=== PATIENT | female | born 1950 | race Caucasian/White ===

== ENCOUNTER 2023-12-07 13:41 | Outpatient (AMB) | payer MEDICARE, SELFPAY ==
[2023-12-07 14:05] VITALS: BP 138/52; PULSE 73; O2SAT 95; BMI 31.6
--- NOTE | 2023-12-07 14:05 | HO.NEPHOV ---
HPI HPI Comments History of Present Illness Details Margi is a 73-year-old woman with a history of resistant hypertension setting obesity and diabetes mellitus. She has a history of coronary disease and atrial fibrillation. She has been on spironolactone hydralazine and amlodipine. About a week ago she had lightheadedness with low blood pressure all the medication were discontinued and she has started back slowly 1 at a time. And she is able to tolerated now without any issues Baseline creatinine is around 1.4 mg/dL.. [facility] Medical History (Updated 12/07/23 @ 15:20 by Dave Angulo MD) Venous insufficiency (chronic) (peripheral) Unsteadiness on feet Type 2 diabetes mellitus Stage 3 chronic kidney disease Spondylolisthesis of lumbar region Spinal stenosis Solitary pulmonary nodule Obstructive sleep apnea on CPAP Seizure Restlessness Restless leg syndrome Primary osteoarthritis Pneumonia Personal history of other diseases of digestive system Paroxysmal atrial fibrillation Pancreatitis Pain in both feet Overactive bladder Other rheumatic aortic valve diseases Other lack of coordination Other hyperlipidemia Other emphysema Onychomycosis Occlusion and stenosis of unspecified carotid artery Obstructive sleep apnea syndrome Malignant essential hypertension Low back pain Localized osteoporosis [Lequesne] Localization-related (focal) (partial) symptomatic epilepsy and epileptic syndromes with simple partial seizures, intractable, with status epilepticus Irritable bowel syndrome Insomnia Inflammatory spondylopathy of lumbar region Hypertensive retinopathy Hypersomnia with sleep apnea Guttate psoriasis Generalized muscle weakness Essential hypertension Esophageal reflux Encounter for other specified surgical aftercare Diverticulitis of colon Disorder of eye Difficulty walking Depressive disorder Functional constipation Congestive heart failure Carpal tunnel syndrome of left wrist Atrial fibrillation Atherosclerotic heart disease of [place] coronary artery without angina pectoris Asthma Anxiety Adjustment disorder with mixed anxiety and depressed mood Anemia Surgical History (Updated 11/29/23 @ 10:48 by Fabi Cui) History of cholecystectomy Hx of cataract surgery Family History Family/Other Diabetes Social History Alcohol intake: never Patient Tobacco Use Status: Never used Tobacco Vital Signs 12/07/23 14:05 Height 5 ft Weight 162 lb BMI 31.6 BP 138/52 L Blood Pressure Location Lt brachial Position Sitting Pulse 73 Pulse Source Pulse Oximeter Pulse Oximetry (%) 95 Oxygen Delivery Method Room Air Physical Exam Vital Signs: Last Vital Signs Pulse 73 12/07/23 14:05 BP 138/52 L 12/07/23 14:05 Pulse Ox 95 12/07/23 14:05 Oxygen Delivery Method Room Air 12/07/23 14:05 BMI result Body Mass Index 31.6 Const General: comfortable Nutritional Appearance: well nourished Orientation/consciousness: patient oriented x3 HEENT Head: No normal to inspection Mouth: moist mucous membranes Neck Neck: Yes supple and Yes no JVD Resp Auscultation: clear to auscultation bilaterally, no rales and rub present Cardio Jugular venous distension: no JVD Palpation: no palpable S3 and no palpable S4 Heart sounds: no rubs GI Palpation (GI): Soft to palpation and nontender Percussion: No Fluid wave present General: Yes no CVA tenderness Back/Spine/Pelvis Back: no CVA tenderness Skin General skin exam: no rashes or lesions noted Neuro General: patient oriented x3 Extrem General: Yes no pedal edema and No clubbing Assessment & Plan Assessment & Plan (1) CKD (chronic kidney disease): Code(s): N18.9 - Chronic kidney disease, unspecified (2) Malignant essential hypertension: Code(s): I10 - Essential (primary) hypertension Plan Elderly woman with llhvrtcjr-ru-apsrmqv hypertension in the setting of coronary disease and CKD. In the past she has been tried on various medications and blood pressure been difficult to control. She has had few admissions with severe hypertension as well as hypotension. Present blood pressure seems to be acceptable. Encouraged her to stay on low-sodium diet. I will keep her on the current regimen. While on spironolactone we will continue to monitor serum potassium periodically. Encouraged her to stay on a low potassium diet as well. She will benefit from weight loss. I have not made any changes to her medications today. Orders: Orders Complete Blood Count Auto Diff 3 Months N18.9 - Chronic kidney disease, unspecified Electrolytes 3 Months N18.9 - Chronic kidney disease, unspecified Blood Urea Nitrogen 3 Months N18.9 - Chronic kidney disease, unspecified Creatinine 3 Months N18.9 - Chronic kidney disease, unspecified Calcium 3 Months N18.9 - Chronic kidney disease, unspecified Medications: New amlodipine 5 mg PO BID 60 tabs 3RF hydralazine 50 mg (2 x 25 mg) PO TID 180 tabs 3RF Coding Level of Care Code Est Pt Level 4 (00594) Diagnoses CKD (chronic kidney disease) N18.9 Malignant essential hypertension I10 Results Reviewed Results Reviewed: 12/05/2023. Hemoglobin 12.4 platelets 2 1 0 K. Sodium 140 potassium 4.5 BUN 27 creatinine 1.4 Nephrology Results: No Data to Display
== END 2023-12-07 14:30 | disposition home or self-care (01) ==
PROVIDERS: PCP Pediatrics; Visit Provider Internal Medicine Hypertension Specialist
DX: I12.9 Hypertensive chronic kidney disease with stage 1 through stage 4 chronic kidney disease, or unspecified chronic kidney disease (principal); N18.9 Chronic kidney disease, unspecified
CPT/HCPCS: 99214

== ENCOUNTER → 2023-12-07 13:41 | Outpatient (BNVA) | payer MEDICARE, SELFPAY | PROVIDERS: PCP Pediatrics; Visit Provider Internal Medicine Hypertension Specialist | DX: I12.9 Hypertensive chronic kidney disease with stage 1 through stage 4 chronic kidney disease, or unspecified chronic kidney disease (principal); N18.9 Chronic kidney disease, unspecified | CPT/HCPCS: 99212 ==

== ENCOUNTER 2024-04-11 13:10 | Outpatient (AMB) | payer MEDICARE, SELFPAY ==
[2024-04-11 13:17] VITALS: BP 138/52; PULSE 51; O2SAT 96; BMI 31.8
--- NOTE | 2024-04-11 13:17 | HO.NEPHOV_ITS ---
Vital Signs 04/11/24 13:17 Height 5 ft Weight 163 lb BMI 31.8 BP 138/52 L Blood Pressure Location Lt brachial Position Sitting Pulse 51 Pulse Source Pulse Oximeter Pulse Oximetry (%) 96 Oxygen Delivery Method Room Air Intake Visit Reasons: May follow up/ Confirmed Communications Administrator Required: No Accompanied by: Self / Same As Patient Allergies codeine Allergy (Verified 04/11/24 13:19) Unknown furosemide Allergy (Verified 04/11/24 13:19) Unknown lisinopril Allergy (Verified 04/11/24 13:19) Cough oxycodone Allergy (Verified 04/11/24 13:19) Itching tetracycline Allergy (Verified 04/11/24 13:19) Nausea and Vomiting Erythromycin Allergy (Uncoded 11/29/23 11:02) Vomiting Hydrocodone-Acetaminophen Allergy (Uncoded 11/29/23 11:02) Itching Talwin Pentazocine Allergy (Uncoded 11/29/23 11:02) Itching HPI Comments Details: Margi is a 74-year-old woman with a history of resistant hypertension setting obesity and diabetes mellitus. She has a history of coronary disease and atrial fibrillation. She has been on spironolactone hydralazine and amlodipine. No new issues today Baseline creatinine is around 1.4 mg/dL.. [facility] Medical History (Updated 12/07/23 @ 15:20 by Dave Angulo MD) Venous insufficiency (chronic) (peripheral) Unsteadiness on feet Type 2 diabetes mellitus Stage 3 chronic kidney disease Spondylolisthesis of lumbar region Spinal stenosis Solitary pulmonary nodule Obstructive sleep apnea on CPAP Seizure Restlessness Restless leg syndrome Primary osteoarthritis Pneumonia Personal history of other diseases of digestive system Paroxysmal atrial fibrillation Pancreatitis Pain in both feet Overactive bladder Other rheumatic aortic valve diseases Other lack of coordination Other hyperlipidemia Other emphysema Onychomycosis Occlusion and stenosis of unspecified carotid artery Obstructive sleep apnea syndrome Malignant essential hypertension Low back pain Localized osteoporosis [Lequesne] Localization-related (focal) (partial) symptomatic epilepsy and epileptic syndromes with simple partial seizures, intractable, with status epilepticus Irritable bowel syndrome Insomnia Inflammatory spondylopathy of lumbar region Hypertensive retinopathy Hypersomnia with sleep apnea Guttate psoriasis Generalized muscle weakness Essential hypertension Esophageal reflux Encounter for other specified surgical aftercare Diverticulitis of colon Disorder of eye Difficulty walking Depressive disorder Functional constipation Congestive heart failure Carpal tunnel syndrome of left wrist Atrial fibrillation Atherosclerotic heart disease of [place] coronary artery without angina pectoris Asthma Anxiety Adjustment disorder with mixed anxiety and depressed mood Anemia Surgical History History of cholecystectomy Hx of cataract surgery Family History Family/Other Diabetes Social History Alcohol intake: never Patient Tobacco Use Status: Never used Tobacco Physical Exam Vital Signs: Last Vital Signs Pulse 51 04/11/24 13:17 BP 138/52 L 04/11/24 13:17 Pulse Ox 96 04/11/24 13:17 Oxygen Delivery Method Room Air 04/11/24 13:17 BMI result Body Mass Index 31.8 Const General: comfortable Nutritional Appearance: well nourished Orientation/consciousness: patient oriented x3 HEENT Head: No normal to inspection Mouth: moist mucous membranes Neck Neck: Yes supple and Yes no JVD Resp Auscultation: clear to auscultation bilaterally, no rales and rub present Cardio Jugular venous distension: no JVD Palpation: no palpable S3 and no palpable S4 Heart sounds: no rubs GI Palpation (GI): Soft to palpation and nontender Percussion: No Fluid wave present General: Yes no CVA tenderness Back/Spine/Pelvis Back: no CVA tenderness Skin General skin exam: no rashes or lesions noted Neuro General: patient oriented x3 Extrem General: Yes no pedal edema and No clubbing Results Reviewed Nephrology Results: No Data to Display Assessment & Plan Assessment & Plan (1) CKD (chronic kidney disease): Code(s): N18.9 - Chronic kidney disease, unspecified Category: Medical (2) Malignant essential hypertension: Code(s): I10 - Essential (primary) hypertension Category: Medical Plan Elderly woman with ipbkamldy-th-hawqpsc hypertension in the setting of coronary disease and CKD. In the past she has been tried on various medications and blood pressure been difficult to control. She has had few admissions with severe hypertension as well as hypotension. Present blood pressure seems to be acceptable. Encouraged her to stay on low-sodium diet. I will keep her on the current regimen. While on spironolactone we will continue to monitor serum potassium periodicall y. Encouraged her to stay on a low potassium diet as well. She will benefit from weight loss. I have not made any changes to her medications today. Orders: Orders Basic Metabolic Panel 4 Months N18.9 - Chronic kidney disease, unspecified Coding Level of Care Code Est Pt Level 4 (31196) Diagnoses CKD (chronic kidney disease) N18.9 Malignant essential hypertension I10
== END 2024-04-11 13:33 | disposition home or self-care (01) ==
PROVIDERS: PCP Pediatrics; Visit Provider Internal Medicine Hypertension Specialist
DX: I12.9 Hypertensive chronic kidney disease with stage 1 through stage 4 chronic kidney disease, or unspecified chronic kidney disease (principal); N18.9 Chronic kidney disease, unspecified
CPT/HCPCS: 99214

== ENCOUNTER → 2024-04-11 13:10 | Outpatient (BNVA) | payer MEDICARE, SELFPAY | PROVIDERS: PCP Pediatrics; Visit Provider Internal Medicine Hypertension Specialist | DX: I12.9 Hypertensive chronic kidney disease with stage 1 through stage 4 chronic kidney disease, or unspecified chronic kidney disease (principal); N18.9 Chronic kidney disease, unspecified | CPT/HCPCS: 99212 ==

== ENCOUNTER 2024-10-10 11:48 | Outpatient (AMB) | payer MEDICARE, SELFPAY ==
[2024-10-10 11:52] VITALS: BP 152/64; PULSE 71; O2SAT 95; BMI 31.2
--- NOTE | 2024-10-10 11:52 | HO.NEPHOV ---
Vital Signs 10/10/24 11:52 10/10/24 12:04 Height 5 ft Weight 160 lb BMI 31.2 BP 152/64 H 130/60 Blood Pressure Location Lt brachial Lt brachial Position Sitting Sitting Pulse 71 Pulse Source Pulse Oximeter Pulse Oximetry (%) 95 Oxygen Delivery Method Room Air Intake Visit Reasons: CKD/ Pt missed 09/26/24 appt/ Conf Cardiovascular Invasive Specialist Required: No Accompanied by: Self / Same As Patient Allergies codeine Allergy (Verified 10/10/24 11:55) Unknown furosemide Allergy (Verified 10/10/24 11:55) Unknown lisinopril Allergy (Verified 10/10/24 11:55) Cough oxycodone Allergy (Verified 10/10/24 11:55) Itching tetracycline Allergy (Verified 10/10/24 11:55) Nausea and Vomiting Erythromycin Allergy (Uncoded 11/29/23 11:02) Vomiting Hydrocodone-Acetaminophen Allergy (Uncoded 11/29/23 11:02) Itching Talwin Pentazocine Allergy (Uncoded 11/29/23 11:02) Itching Medication List - Last Reconciled 10/10/24 by Dave Angulo MD albuterol sulfate 90 mcg/actuation (Ventolin HFA) inhalation alendronate 70 mg PO QWEEK amiodarone 200 mg PO DAILY amlodipine 5 mg PO BID apixaban (Eliquis) 5 mg PO BID bupropion HCl SR 200 mg PO BID cetirizine (Zyrtec) 10 mg PO DAILY PRN cholecalciferol (vitamin D3) 50 mcg PO DAILY cyanocobalamin (vitamin B-12) (Vitamin B-12) mcg sublingual cyclosporine 0.05% drps ophthalmic (eye) duloxetine 30 mg PO DAILY cowtqsbfqmu-qsijaojje-dwcwqvdd 200-62.5-25 mcg (Trelegy Ellipta) 1 inh inhalation DAILY PRN gabapentin 300 mg PO BID hydralazine 50 mg (2 x 25 mg) PO TID insulin aspart U-100 (Novolog FlexPen U-100 Insulin aspart) subcut insulin glargine (Lantus Solostar U-100 Insulin) 35 units subcut melatonin 3 mg PO BEDTIME PRN montelukast 10 mg PO DAILY omeprazole 40 mg PO BID rosuvastatin 20 mg PO BEDTIME spironolactone 50 mg PO BID NS trazodone 50 mg PO BEDTIME vitamin E (dl, acetate) mg PO DAILY HPI Comments Details: Margi is a 74-year-old woman with a history of resistant hypertension setting obesity and diabetes mellitus. She has a history of coronary disease and atrial fibrillation. She has been on spironolactone hydralazine and amlodipine. No new issues today Baseline creatinine is around 1.4 mg/dL.. [facility] Medical History (Updated 12/07/23 @ 15:20 by Dave Angulo MD) Venous insufficiency (chronic) (peripheral) Unsteadiness on feet Type 2 diabetes mellitus Stage 3 chronic kidney disease Spondylolisthesis of lumbar region Spinal stenosis Solitary pulmonary nodule Obstructive sleep apnea on CPAP Seizure Restlessness Restless leg syndrome Primary osteoarthritis Pneumonia Personal history of other diseases of digestive system Paroxysmal atrial fibrillation Pancreatitis Pain in both feet Overactive bladder Other rheumatic aortic valve diseases Other lack of coordination Other hyperlipidemia Other emphysema Onychomycosis Occlusion and stenosis of unspecified carotid artery Obstructive sleep apnea syndrome Malignant essential hypertension Low back pain Localized osteoporosis [Lequesne] Localization-related (focal) (partial) symptomatic epilepsy and epileptic syndromes with simple partial seizures, intractable, with status epilepticus Irritable bowel syndrome Insomnia Inflammatory spondylopathy of lumbar region Hypertensive retinopathy Hypersomnia with sleep apnea Guttate psoriasis Generalized muscle weakness Essential hypertension Esophageal reflux Encounter for other specified surgical aftercare Diverticulitis of colon Disorder of eye Difficulty walking Depressive disorder Functional constipation Congestive heart failure Carpal tunnel syndrome of left wrist Atrial fibrillation Atherosclerotic heart disease of [place] coronary artery without angina pectoris Asthma Anxiety Adjustment disorder with mixed anxiety and depressed mood Anemia Surgical History History of cholecystectomy Hx of cataract surgery Family History Family/Other Diabetes Social History Alcohol intake: never Patient Tobacco Use Status: Never used Tobacco Physical Exam Vital Signs: Last Vital Signs Pulse 71 10/10/24 11:52 BP 152/64 H 10/10/24 11:52 Pulse Ox 95 10/10/24 11:52 Oxygen Delivery Method Room Air 10/10/24 11:52 BMI result Body Mass Index 31.2 Results Reviewed Results Reviewed: Sep Cr 1.37 K 5.1 Nephrology Results: No Data to Display Assessment & Plan Assessment & Plan (1) CKD (chronic kidney disease): Code(s): N18.9 - Chronic kidney disease, unspecified Category: Medical (2) Malignant essential hypertension: Code(s): I10 - Essential (primary) hypertension Category: Medical Plan Elderly woman with [id number] hypertension in the setting of coronary disease and CKD. In the past she has been tried on various medications and blood pressure been difficult to control. She has had few admissions with severe hypertension as well as hypotension. Present blood pressure seems to be acceptable. Encouraged her to stay on low-sodium diet. I will keep her on the current regimen. While on spironolactone we will continue to monitor serum potassium periodically. Encouraged her to stay on a low potassium diet as well. She will benefit from weight loss. I have not made any changes to her medications today. Creatinine is stable at baseline - around 1.3 Orders: Orders Basic Metabolic Panel 6 Months I10 - Essential (primary) hypertension, N18.9 - Chronic kidney disease, unspecified Coding Level of Care Code Est Pt Level 4 (43956) Diagnoses CKD (chronic kidney disease) N18.9 Malignant essential hypertension I10
[2024-10-10 12:04] VITALS: BP 130/60
== END 2024-10-10 12:08 | disposition home or self-care (01) ==
PROVIDERS: PCP Pediatrics; Visit Provider Internal Medicine Hypertension Specialist
DX: I12.9 Hypertensive chronic kidney disease with stage 1 through stage 4 chronic kidney disease, or unspecified chronic kidney disease (principal); N18.9 Chronic kidney disease, unspecified
CPT/HCPCS: 99214

== ENCOUNTER → 2024-10-10 11:48 | Outpatient (BNVA) | payer MEDICARE, SELFPAY | PROVIDERS: PCP Pediatrics; Visit Provider Internal Medicine Hypertension Specialist | DX: I1A.0 Resistant hypertension (principal); I12.9 Hypertensive chronic kidney disease with stage 1 through stage 4 chronic kidney disease, or unspecified chronic kidney disease; E11.22 Type 2 diabetes mellitus with diabetic chronic kidney disease; N18.9 Chronic kidney disease, unspecified; E66.9 Obesity, unspecified; I25.10 Atherosclerotic heart disease of native coronary artery without angina pectoris; I48.91 Unspecified atrial fibrillation; Z68.31 Body mass index [BMI] 31.0-31.9, adult | CPT/HCPCS: 99212 ==

== ENCOUNTER 2024-12-14 14:43 | Outpatient (REF) | payer MEDICARE, SELFPAY ==
--- OUTSIDE RECORDS SUMMARY | 2024-12-14 14:48 | XMS_ITS ---
Author Organization [facility] Address Unknown Allergies, Adverse Reactions, Alerts Substance Reaction Status Noted Date Resolved Date Zestril active 01/07/2017 Tetracycline active 01/07/2017 Talwin Nx active 01/07/2017 Lisinopril active 06/24/2020 Lasix active 01/07/2017 Erythromycin active 01/07/2017 Codeine active 01/07/2017 Problems Problem Status Start Date End Date FUSION OF SPINE, LUMBAR JOSUE ON (Primary) (M43.26 - ICD-10-CM) ACTIVE 06/24/2020 ENCOUNTER FOR OTHER SPECIFIE D SURGICAL AFTERCARE (Z48.89 - ICD-10-CM) ACTIVE 06/24/2020 CHRONIC OBSTRUCTIVE PULMONAR Y DISEASE, UNSPECIFIED (J44.9 - ICD-10-CM) ACTIVE 06/24/2020 LOW BACK PAIN (M54.5 - ICD-10-CM) ACTIVE 020 DIFFICULTY IN WALKING, NOT E LSEWHERE CLASSIFIED (R26.2 - ICD-10-CM) ACTIVE 06/24/2020 MUSCLE WEAKNESS (GENERALIZED) (M62.81 - ICD-10-CM) ACT JILL 06/24/2020 UNSTEADINESS ON FEET (R26.81 - ICD-10-CM) ACTIVE 06/24/2020 OTHER LACK OF COORDINATION (R27.8 - ICD-10-CM) ACTIVE 06/24/2020 SPINAL STENOSIS, LUMBAR JOSUE ON WITHOUT NEUROGENIC CLAUDICATION (M48.061 - ICD-10-CM) ACTIVE 06/24/2020 SPONDYLOLISTHESIS, LUMBAR REGION (M43.16 - ICD-10-CM) ACTIVE 06/24/2020 ADJUSTMENT DISORDER WITH MIX ED ANXIETY AND DEPRESSED MOOD (F43.23 - ICD-10-CM) ACTIVE 06/24/2020 GASTRO-ESOPHAGEAL REFLUX DIS EASE WITHOUT ESOPHAGITIS (K21.9 - ICD-10-CM) ACTIVE 06/24/2020 OTHER IRON DEFICIENCY ANEMIAS (D50.8 - ICD-10-CM) ACTI VE 06/24/2020 OTHER RHEUMATIC AORTIC VALVE DISEASES (I06.8 - ICD-10-CM) ACTIVE 06/24/2020 INSOMNIA, UNSPECIFIED (G47.00 - ICD-10-CM) ACTIVE 06/24/2020 ANEMIA IN CHRONIC KIDNEY DISEASE (D63.1 - ICD-10-CM) A CTIVE 06/24/2020 VENOUS INSUFFICIENCY (CHRONI C) (PERIPHERAL) (I87.2 - ICD-10-CM) ACTIVE 06/24/2020 GUTTATE PSORIASIS (L40.4 - ICD-10-CM) ACTIVE 09/2020 OTHER HYPERLIPIDEMIA (E78.49 - ICD-10-CM) ACTIVE 06/24/2020 HYPERTENSIVE RETINOPATHY, UN SPECIFIED EYE (H35.039 - ICD-10-CM) ACTIVE 06/24/2020 PERSONAL HISTORY OF OTHER DI SEASES OF THE DIGESTIVE SYSTEM (Z87.19 - ICD-10-CM) ACTIVE 06/24/2020 CARPAL TUNNEL SYNDROME, LEFT UPPER LIMB (G56.02 - ICD-10-CM) ACTIVE 06/24/2020 SOLITARY PULMONARY NODULE (R91.1 - ICD-10-CM) ACTIVE 06/24/2020 OCCLUSION AND STENOSIS OF UN SPECIFIED CAROTID ARTERY (I65.29 - ICD-10-CM) ACTIVE 06/24/2020 PRIMARY OSTEOARTHRITIS, UNSP ECIFIED HAND (M19.049 - ICD-10-CM) ACTIVE 06/24/2020 LOCALIZED OSTEOPOROSIS [LEQUESNE] (M81.6 - ICD-10-CM) ACTIVE 06/24/2020 OVERACTIVE BLADDER (N32.81 - ICD-10-CM) ACTIVE 0 06/24/2020 LOCALIZATION-RELATED (FOCAL) (PARTIAL) SYMPTOMATIC EPILEPSY AND EPILEPTIC SYNDROMES WITH SIMPLE PARTIAL SEIZURES, NOT INTRACTABLE, WITH STATUS EPILEPTICUS (G40.101 - ICD-10-CM) ACTIVE 06/24/2020 EPIGASTRIC PAIN (R10.13 - ICD-10-CM) ACTIVE 06/14 UNSPECIFIED INFLAMMATORY SPO NDYLOPATHY, LUMBAR REGION (M46.96 - ICD-10-CM) ACTIVE 06/24/2020 UNSPECIFIED ASTHMA, UNCOMPLI CATED (J45.909 - ICD-10-CM) ACTIVE 06/24/2020 TYPE 2 DIABETES MELLITUS WIT HOUT COMPLICATIONS (E11.9 - ICD-10-CM) ACTIVE 01/06/2017 HEART FAILURE, UNSPECIFIED (I50.9 - ICD-10-CM) ACTIVE 01/06/2017 CELLULITIS OF LEFT LOWER LIMB (L03.116 - ICD-10-CM) RE SOLVED 01/06/2017 07/01/2020 ENCOUNTER FOR SURGICAL AFTER CARE FOLLOWING SURGERY ON THE SKIN AND SUBCUTANEOUS TISSUE (Z48.817 - ICD-10-CM) RESOLVED 01/0607/01/2020 NON-PRESSURE CHRONIC ULCER O F UNSPECIFIED PART OF LEFT LOWER LEG WITH UNSPECIFIED SEVERITY (L97.929 - ICD-10-CM) RESOLVED 01/06/2017 07/01/2020 NON-PRESSURE CHRONIC ULCER O F UNSPECIFIED PART OF UNSPECIFIED LOWER LEG WITH UNSPECIFIED SEVERITY (L97.909 - ICD-10-CM) RESOLVED 01/06/2017 07/01/2020 TYPE 2 DIABETES MELLITUS WIT H OTHER SKIN ULCER (E11.622 - ICD-10-CM) RESOLVED 01/06/2017 07/01/2020 ATHEROSCLEROTIC HEART DISEAS E OF TORRES MARTINEZ CORONARY ARTERY WITHOUT ANGINA PECTORIS (I25.10 - ICD-10-CM) ACTIVE 01/06/20 17 PAROXYSMAL ATRIAL FIBRILLATION (I48.0 - ICD-10-CM) ACT JILL 01/06/2017 DIFFICULTY IN WALKING, NOT E LSEWHERE CLASSIFIED (R26.2 - ICD-10-CM) RESOLVED 01/06/2017 07/01/2020 OTHER LACK OF COORDINATION (R27.8 - ICD-10-CM) RESOLVE D 01/06/2017 07/01/2020 MUSCLE WEAKNESS (GENERALIZED) (M62.81 - ICD-10-CM) RES OLVED 01/06/2017 07/01/2020 ESSENTIAL (PRIMARY) HYPERTENSION (I10 - ICD-10-CM) ACT JILL 01/06/2017 HYPERLIPIDEMIA, UNSPECIFIED (E78.5 - ICD-10-CM) ACTIVE 01/06/2017 OBSTRUCTIVE SLEEP APNEA (CLEMENTE LT) (PEDIATRIC) (G47.33 - ICD-10-CM) ACTIVE 01/06/2017 SPINAL STENOSIS, SITE UNSPECIFIED (M48.00 - ICD-10-CM) ACTIVE 01/06/2017 CONSTIPATION, UNSPECIFIED (K59.00 - ICD-10-CM) ACTIVE 01/06/2017 Encounters Encounter Performer Performer Role Encounter Diagnoses Location Date Discharge - Discharged / Transferred to home under care of organized home health service organization - Private home/apt. with home health services [facility] 01/06/2017 12:00 am EST - 01/19/2017 11:30 am EST Discharge - Discharged to home or self care - Home (Agency Unknown) - Private home/apt. with home health services [facility] 06/24/2020 02:23 pm EDT - 07/08/2020 05:50 pm EDT Immunizations Vaccine Date Influenza 08/24/2018 12:00 am EDT Influenza 04/18/2016 12:00 am EDT Tetanus 11/09/2013 12:00 am EST Zostavax(Shingles) 04/02/2016 12:00 am EDT Pneumococcal Conjugate Vaccine (PCV13) 1 11/27/2010 12:00 am EST Pneumococcal Polysaccharide Vaccine (PPS V23) 11/19/2019 12:00 am EST Social History
--- OUTSIDE RECORDS SUMMARY | 2024-12-14 14:48 | XMS_ITS | Clinical Summary ---
Author Organization [facility] Address [address] [facility] [address] [place] [address] Phone Care Team Providers Care Crab Steamer Name Role Phone Susana Landrum DO Primary Care Provider [phone] Allergies Active Allergy Reactions Criticality Noted Date Comments Codeine 01/07/2017 Erythromycin Other (see comments) 01/07/2017 vomit Furosemide 01/07/2017 Hydrocodone-Acetaminophen Itching 04/22/2011 Lisinopril Other (see comments) 09/21/2005 COUGH Oxycodone Other (see comments) 02/10/2021 Oxycodone-Acetaminophen Itching 09/21/2005 Pentazocine Other (see comments),Itching 09/21/2005 rxn unknown Tetracycline Nausea And Vomiting 09/21/2005 UNKNOWN Medications albuterol HFA (PROVENTIL HFA;VENTOLIN HFA) 108 (90 Base) MCG/ACT inhaler Inhale 2 puffs every 4 (four) hours 12/27/19 15 Active alendronate (FOSAMAX) 70 MG tablet alendronate 70 mg tablet Active amiodarone (PACERONE) 200 MG tablet Take 1 tablet by mouth 1 (one) time each day Active apixaban (ELIQUIS) 5 MG tablet Take 1 tablet by mouth 2 (two) times a day Active buPROPion SR (WELLBUTRIN SR) 200 MG 12 hr tablet 200 mg in the morning and 200 mg in the evening. 04/05/20 16 Active Calcium Carbonate-Vitam in D (calcium-vitami n D) 500-200 MG-UNIT tablet Take by mouth A ctive cetirizine (ZyrTEC) 10 MG tablet cetirizine 10 mg tablet Active Cholecalciferol 50 MCG (2000 UT) capsule cholecalciferol (vitamin D3) 50 mcg (2,000 unit) capsule Active doxycycline (ADOXA) 100 MG tablet doxycycline monohydrate 100 mg tablet Active fluticasone (FLONASE) 50 MCG/ACT nasal spray fluticasone propionate 50 mcg/actuation nasal spray,suspension Active gabapentin (NEURONTIN) 300 MG capsule Take 1 capsule by mouth 2 (two) times a day 05/06/20 16 Active insulin aspart (NovoLOG FLEXPEN) 100 UNIT/ML injection Novolog Flexpen U-100 Insulin aspart 100 unit/mL (3 mL) subcutaneous Activ e insulin glargine (Lantus) 100 UNIT/ML injection Inject 35 Units under the skin 1 (one) time each day Activ e insulin lispro (HumaLOG) 100 UNIT/ML injection Comments: Patient Notes: SLIDING SCALE Active Melatonin 3 MG tablet dispersible melatonin 3 mg disintegrating tablet Active montelukast (SINGULAIR) 10 MG tablet Take 1 tablet by mouth 1 (one) time each day 06/15/20 17 Active polyethylene glycol (GLYCOLAX) 17 GM/SCOOP powder polyethylene glycol 3350 17 gram/dose oral powder Active alpha tocopherol (VITAMIN E) 100 units capsule vitamin E (dl, acetate) 45 mg (100 unit) capsule Active Trelegy Ellipta 200-62.5-25 MCG/INH aerosol powder 09/17/20 21 Active omeprazole (PriLOSEC) [address] capsule 09/28/20 21 Active Vitamin E 45 MG (100 UNIT) capsule 09/17/20 21 Active hydrALAZINE 25 MG tablet Take 2 tablets (50 mg total) by mouth in the morning and 2 tablets (50 mg total) at noon and 2 tablets (50 mg total) in the evening. 180 tablet 10 01/05/20 23 Active Blood Pressure Monitor kit 1 Units by Other route 1 (one) time each day Take blood pressure daily 1 kit 01/18/20 23 Active amLODIPine (NORVASC) 5 MG tablet TAKE 1 TABLET BY MOUTH TWICE A DAY 180 tablet 4 04/24/20 23 Active spironolactone (ALDACTONE) 50 MG tablet TAKE ONE TABLET BY MOUTH TWO TIMES A DAY 60 tablet 3 05/09/20 23 Active Active Problems Problem Noted Date Diagnosed Date Recurrent major depressive episodes, moderate 08/10/2023 Bilateral osteoarthritis of knees 08/10/2023 08/10/2023 Right flank pain 06/22/2023 08/10/2023 Adjustment disorder with mixed emotional feature s 12/01/2022 Anemia 12/01/2022 Ankle pain 12/01/2022 Aortic valve sclerosis 12/01/2022 Bladder muscle dysfunction - overactive 12/01/19 Coronary arteriosclerosis 12/01/2022 Obese class I 12/01/2022 Lung mass 12/01/2022 Lumbar AND/OR sacral arthritis 12/01/2022 Disorder of rotator cuff 12/01/2022 Hypertensive disorder 12/01/2022 Diverticulitis 12/01/2022 Disorder of carotid artery 12/01/2022 Patient care statuses 12/01/2022 Osteoporosis 12/01/2022 Sinusitis 07/07/2022 Anemia in chronic kidney disease 06/24/2020 Other iron deficiency anemia 06/24/2020 Low back pain 06/24/2020 Chronic kidney disease stage 3 01/31/2012 Proteinuria 03/24/2006 Abdominal pain, epigastric 12/03/1998 Overview (02/10/2021): functional abd pain Resolved Problems Problem Noted Date Diagnosed Date Resolved Date Adjustment disorder with mix ed anxiety and depressed mood 06/24/2020 02/10/2021 Difficulty in walking 06/24/20202020 Encounter for other specifie d surgical aftercare 06/24/2020 02/10/2021 Spondylolisthesis of lumbar region 06/24/2020 02/10/2021 Generalized muscle weakness 06/24/2020 02/10/2021 Other hyperlipidemia 06/24/2020 021 Hypertensive retinopathy, unspecified eye 06/24/2020 02/10/2021 Inflammatory spondylopathy of lumbar region 06/24/2020 02/10/2021 Localization-related (focal) (partial) symptomatic epilepsy and epileptic syndromes with simple partial seizures, not intractable, with status epilepticus 06/24/2020 Localized osteoporosis ([place]) 06/24/2020 02/10/2021 Low back pain 06/24/2020 02/10/2021 Occlusion and stenosis of un specified carotid artery 06/24/2020 02/10/2021 Primary osteoarthritis, unspecified hand 06/24/2020 02/10/2021 Overview (02/10/2021): IMO update Other lack of coordination 06/24/2020 0 02/10/2021 Other rheumatic aortic valve disease 06/24/2020 02/10/2021 Personal history of other di sease of the digestive system 06/24/2020 02/10/2021 Solitary pulmonary nodule 06/24/2020 Unsteadiness on feet 06/24/2020 021 Venous insufficiency (chronic) (peripheral) 06/24/2020 02/10/2021 Atherosclerotic heart diseas e of [place] coronary artery without angina pectoris 01/06/2017 02/10/2021 Obstructive sleep apnea syndrome 01/06/2017 02/10/2021 Paroxysmal atrial fibrillation 01/06/2017 02/10/2021 Spinal stenosis 01/06/2017 02/10/2021 Onychomycosis 10/24/2016 02/10/2021 Pain in both feet 10/24/2016 02/10/2021 Restless leg syndrome 09/08/20152020 Seizure 07/11/2015 02/10/2021 Restlessness 05/20/2015 02/10/2021 Irritable bowel syndrome 07/23/2014 Disorder of eye due to type 2 diabetes mellitus 07/10/2014 02/10/2021 Overview (02/10/2021): Carpel Tunnel. Nuclear Sclerosis noted on outside eye exam 07/11/12 Dr. Silvia Rollins. Type 2 diabetes mellitus 07/10/2014 Overview (02/10/2021): A1C 7.7 and GFR 48 on 04/18/14. 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 Hypersomnia with sleep apnea 06/20/2007 02/10/2021 Overview (02/10/2021): IMO update Other emphysema 06/20/2007 02/10/2021 Overactive bladder 07/15/2006 Pancreatitis 11/05/2005 02/10/2021 Overview (02/10/2021): secondary to hydrochlorothiazide Pneumonia 03/21/2001 02/10/2021 Esophageal reflux 07/19/2000 02/10/2021 Malignant essential hypertension 12/02/1999 02/10/2021 Asthma 12/02/1998 02/10/2021 Immunizations Name Administration Dates Next Due H1N1 Inj 11/18/2009 H1N1 Inj Preservative Free 11/18/2009 Influenza (IM) Preservative Free 09/25/2015 Influenza TIV (IM) 08/24/2018, 6,08/14/2014,12/13,07/21/2011,07/22/2010,08/11/2009 ,08/05/2008,09/28/2007,09/28/2007,08/14,09/28/2005,08/31/2004, 3,09/01/2001 Influenza, Quadrivalent, Wit h Preservative 08/16/2016 Influenza, Unspecified 02/10/2023,2020,08/29/2020,08/02,08/23/2016,04/18/2016,09/16/2014 ,09/04/2012 Moderna SARS-COV-2 09/14/2021,02/06/2021 Pfizer SARS-COV-2 01/09/2021 Pneumococcal Conjugate 13-Valent 04/02/2016,09/14,12/07/2010 Pneumococcal Polysaccharide 11/19/2019,0 01/30/2014,01/09/2014,04/01,12/07/2010,09/27/2001 Td 12/18/2004 Td, Unspecified 11/09/2013,12/18/2004 Tetanus 11/09/2013 Zoster 04/02/2016 Family History Medical History Relation Comments Diabetes Sibling Relation Status Comments Mother Unknown Sibling Social History Tobacco Use Types Packs/Day Years Used Date Smoking Tobacco: Never Smokeless Tobacco: Never Tobacco Cessation:Counseling Given: Not Answered Alcohol Use Standard Drinks/Week Comments No 0 (1 standard drink = 0.6 oz pur e alcohol) Comments Unknown Sex and Gender Information Value Date Recorded Sex Assigned at Not on file Legal Sex Female 5:12 PM EST Gender Identity Not on file Sexual Orientation Not on file Last Filed Vital Signs Vital Sign Reading Time Taken Comments Blood Pressure 148/84 08/10/2023 2:43 PM EDT Pulse 130 08/10/2023 2:43 PM EDT Temperature - - Respiratory Rate - - Oxygen Saturation 97% 08/10/2023 2:43 PM EDT Inhaled Oxygen Concentration - - Weight 74.1 kg (163 lb 6.4 oz) 08/10/2023 2:43 P M EDT Height 152.4 cm (5') 08/10/2023 2:43 PM EDT Body Mass Index 31.91 08/10/2023 2:43 PM EDT Plan of Treatment Health Maintenance Due Date Last Done Comments Breast Cancer Screening 1950 Colorectal Cancer Screening: Annual FOBT 1998 Colorectal Cancer Screening: Colonoscopy 1998 Colorectal Cancer Screening: Sigmoidoscopy 1998 Influenza Vaccine (#1) 2024 3, 09/14/2021, 08/29/2020, Additional history exists Pneumococcal Vaccine: 65+ Years Completed 11/19/2019, 04/02/2016, 01/30/2014, Additional history exists Hepatitis B Vaccine Aged Out No longe r eligible based on patient's age to complete this topic Insurance [facility] ([id number]) [facility] ([id number]) Care Teams Crab Steamer Relationship Specialty Start Date End Date Susana Landrum DO [address] [place] [phone] PCP - General Pediatrics 08/12/21
--- OUTSIDE RECORDS SUMMARY | 2024-12-14 14:48 | XMS_ITS | Encounter Summary ---
Author Organization [facility] Address [address] [facility] [address] [place] [address] Phone Care Team Providers Care Cosmetics Presser Name Role Phone Susana Landrum DO Primary Care Provider [phone] Reason for Visit * Reason Comments Med Refill Encounter Details Date Type Department Care Team (Late st Contact Info) Description 08/17/2023 Refill [facility] [address] [facility] [address] [place] [phone] Dave Angulo MD Social History Tobacco Use Types Packs/Day Years Used Date Smoking Tobacco: Never Smokeless Tobacco: Never Alcohol Use Standard Drinks/Week Comments No 0 (1 standard drink = 0.6 oz pur e alcohol) Comments Unknown Sex and Gender Information Value Date Recorded Sex Assigned at Not on file Legal Sex Female 5:12 PM EST Gender Identity Not on file Sexual Orientation Not on file documented as of this encounter Plan of Treatment Not on file documented as of this encounter Visit Diagnoses Not on filedocumented in this encounter Care Teams Cosmetics Presser Relationship Specialty Start Date End Date Susana Landrum DO [address] [place] [phone] PCP - General Pediatrics 08/12/21 documented as of this encounter
--- OUTSIDE RECORDS SUMMARY | 2024-12-14 14:48 | XMS_ITS | Clinical Summary ---
Author Organization [facility] Address [address] [place] [address] Care Team Providers Care Vertical Borer Name Role Phone Contreras Camacho MD Primary Care Provider [phone] Surgical History Surgery Date Site/Laterality Comments OTHER SURGICAL HISTORY 11/14 & 01/13 PROCEDURE: IMAGING, CARDIAC CATHETERIZATION; COMMENT: NEGATIVE NASAL SEPTUM SURGERY PROCEDURE: KY SEPTOPLASTY/SUBMUCOUS RESECJ W/WO CARTILAGE GRF; COMMENT: PER PT HISTORY OTHER SURGICAL HISTORY 07/24/01 PROCEDURE: NUCLEAR SCAN OF HEART MUSCLE; COMMENT: NORMAL EXAM OTHER SURGICAL HISTORY 04/12/03 PROCEDURE: DXA, BONE DENSITY STUDY, 1+ SITES; VERTEBRAL FX ASSESS; COMMENT: NORMAL OTHER SURGICAL HISTORY 05/22 PROCEDURE: MAMMOGRAM CHOLECYSTECTOMY PROCEDURE: HISTORICAL CHOLECYSTECTOMY; COMMENT: open COLONOSCOPY 06/12/2008 PROCEDURE: KY COLONOSCOPY FLX DX W/COLLJ SPEC WHEN PFRMD; COMMENT: diverticulosis, repeat 10 years APPENDECTOMY PROCEDURE: KY APPENDECTOMY; COMMENT: done concurrent with cholecystectomy ESOPHAGOGASTRODUODENOSCOPY 02/01/02 PROCEDURE: KY ESOPHAGOGASTRODUODENOSCOPY TRANSORAL DIAGNOSTIC; COMMENT: WNL ESOPHAGOGASTRODUODENOSCOPY 12/19/09 PROCEDURE: KY EGD TRANSORAL BIOPSY SINGLE/MULTIPLE; COMMENT: gastric foveolar hyperplasia COLONOSCOPY 05/2008 PROCEDURE: HISTORICAL COLONOSCOPY; COMMENT: tics; repeat in ten yrs COLONOSCOPY W/ BIOPSIES 06/24/14 PROCEDURE: KY COLONOSCOPY STOMA W/BIOPSY SINGLE/MULTIPLE; COMMENT: tics; repeat in ten yrs; normal colonic biopsies Medical History Medical History Date Comments Abdominal pain, epigastric 12/03/98 DX:Ab dominal pain, epigastric; COMMENT: FUNCTIONAL ABD PAIN Osteoarthrosis, unspecified whether generalized or localized, lower leg 06/21/01 DX:Osteoarthrosis, unspecified whether generalized or localized, lower leg Other seborrheic keratosis 06/06/03 DX:Ot her seborrheic keratosis Tear of medial cartilage or meniscus of knee, current 04/01/05 DX:Tear of medial cartilage or meniscus of knee, current Acute pancreatitis 11/05/2005 DX:Acute panc reatitis; COMMENT: secondary to hydrochlorothiazide Proteinuria 03/24/2006 DX:Proteinuria Bacterial pneumonia, unspecified 07/11/2006 DX:Bacterial pneumonia, unspecified Coronary atherosclerosis of unspecified type of vessel, [place] or graft 03/02/00 DX:Coronary atherosclerosis of unspecified type of vessel, [place] or graft Bronchitis, not specified as acute or chronic 07/11/2006 DX:Bronchitis, not specified as acute or chronic Depressive disorder, not els ewhere classified 03/14/02 DX:Depressive disorder, not elsewhere classified Sciatica 03/02/00 DX:Sciatica Lumbago 06/27/02 DX:Lumbago Atrial fibrillation ([facility]) 03/13/2008 DX :Atrial fibrillation ([facility]); COMMENT: Episode 02/19 Diverticulosis of colon (wit hout mention of hemorrhage) 06/12/2008 DX:Diverticulosis of colon ( without mention of hemorrhage); COMMENT: Incidental finding at colonoscopy 06/12/2008. Hypersomnia with sleep apnea , unspecified 10/13/01 DX:Hypersomnia with sleep ap debora, unspecified Essential hypertension, benign 12/02/99 D X:Essential hypertension, benign Esophageal reflux 07/19/00 DX:Esophageal reflux Anxiety 12/24/2011 DX:Anxiety Psoriasis 07/11/2012 DX:Psoriasis Chronic renal insufficiency, stage III (moderate) ([facility]) 01/31/2012 DX:Chronic renal insufficien cy, stage III (moderate) ([facility]) Osteoarthrosis, unspecified whether generalized or localized, unspecified site 12/24/2010 DX:Osteoarthrosis, unspecifi ed whether generalized or localized, unspecified site Convulsion ([facility]) 07/11/2015 DX:Convulsi on ([facility]) Type II diabetes mellitus wi th renal manifestations, uncontrolled 07/10/2014 DX:Type II diabetes mellitus with renal manifestations, uncontrolled; COMMENT: A1C 7.7 and GFR 48 on 04/18/14. Type 2 diabetes mellitus wit h ophthalmic manifestations, uncontrolled 07/10/2014 DX:Type 2 diabetes mellitus with ophthalmic manifestations, uncontrolled; COMMENT: Nuclear Sclerosis noted on outside eye exam 07/11/12 Dr. Silvia Rollins. Type II diabetes mellitus wi th neurological manifestations, uncontrolled 07/10/2014 DX:Type II diabetes mellitus with neurological manifestations, uncontrolled; COMMENT: Carpel Tunnel. Spinal stenosis of lumbar region 03/05/2014 DX:Spinal stenosis of lumbar region Restless 05/20/2015 DX:Restless Pneumonia, organism unspecified(486) 03/21/2001 DX:Pneumonia, organism unspe cified(486) Hypertonicity of bladder 07/15/2006 DX:Hype rtonicity of bladder Other emphysema (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 Depression 12/24/2011 DX:Depression Coronary atherosclerosis of [place] coronary vessel 03/02/2000 DX:Coronary atherosclerosis of [place] coronary vessel Carpal tunnel syndrome on left 08/24/2010 D X:Carpal tunnel syndrome on left CHF (congestive heart failur e) ([facility]) 12/07/2010 DX:CHF (congestive heart den lure) ([facility]) Unspecified asthma(493.90) 12/02/1998 DX:Un specified asthma(493.90) Family History Medical History Relation Name Comments Other Dermatological Disorders Sister 1 Face....specifics unknown Other: ovarian cancer Sister 2 Breast cancer Neg Hx Relation Name Status Comments Sister 1 Sister 2 Social History Tobacco Use Types Packs/Day Years Used Date Smoking Tobacco: Never Smokeless Tobacco: Never Alcohol Use Standard Drinks/Week Comments No 0 (1 standard drink = 0.6 oz pur e alcohol) Sex and Gender Information Value Date Recorded Sex Assigned at Not on file Gender Identity Not on file Sexual Orientation Not on file Obstetrics History Plan of Treatment Health Maintenance Due Date Last Done Comments Diabetes: Annual GFR (Glomerular Filtration Rate) 1949 Diabetes: Annual Foot Exam 1959 Diabetes: Annual Retina Eye Exam 1959 Zoster Vaccines (1 of 2) 1999 Pneumococcal Vaccine: 65+ Years (2 of 2 - PCV) 12/07/2011 12/07/2010, 09/27/2001 DTaP,Tdap,and Td Vaccines (2 - Td or Tdap) 12/18/2014 12/18/2004 Cholesterol Screening (Lipid Panel) 12/13/2023 Colorectal Cancer Screening: Colonoscopy 12/13/2023 Depression Screening 12/13/2023 Diabetes: Annual Urine Albumin-Creatinine Ratio (uACR) 12/13/2023 Diabetes: Blood Sugar Control Test (HGBA1C) 12/13/2023 Falls Risk Assessment 12/13/2023 Hepatitis C Screening 12/13/2023 Hypertension/CHF/CAD Annual BMP Blood Test 12/13/2023 Osteoporosis Screening (Bone Density Screening) 12/13/2023 Social Influencers of Health Screening 12/13/2023 RSV Immunization Patients 60+ Years Old (1 - 1-dose 75+ series) 02/10/2024 COVID-19 Vaccine ( - season) 2024 Influenza Vaccine (#1) 2024 4, 12/13/2013, 07/21/2011, Additional history exists HIB Vaccines Aged Out No longer eligi ble based on patient's age to complete this topic HPV Vaccines Aged Out No longer eligi ble based on patient's age to complete this topic Hepatitis A Vaccines Aged Out No long er eligible based on patient's age to complete this topic Hepatitis B Vaccines Aged Out No long er eligible based on patient's age to complete this topic IPV Vaccines Aged Out No longer eligi ble based on patient's age to complete this topic MMR Vaccines Aged Out No longer eligi ble based on patient's age to complete this topic Meningococcal ACWY Vaccine Aged Out N o longer eligible based on patient's age to complete this topic RSV Immunization Patients Under 20 months Aged Out No longer eligible based on patient's age to complete this topic Varicella Vaccines Aged Out No longer eligible based on patient's age to complete this topic Care Teams Vertical Borer Relationship Specialty Start Date End Date Contreras Camacho MD PCP - General 07/15/1991
--- OUTSIDE RECORDS SUMMARY | 2024-12-14 14:48 | XMS_ITS | Encounter Summary ---
Author Organization [facility] Address [address] [place] [address] Phone Care Team Providers Care Director Data Analytics Name Role Phone Susana Landrum DO Primary Care Provider [phone] Reason for Visit * Reason Comments Med Refill Encounter Details Date Type Department Care Team (Late st Contact Info) Description 04/13/2022 [facility]ill [facility] [address] [place] [address] Rajat Patiño MD Social History Tobacco Use Types Packs/Day [...] on filedocumented in this encounter Care Teams Director Data Analytics Relationship Specialty Start Date End Date Susana Landrum DO [address] [place] [phone] PCP - General Pediatrics 08/12/21 documented as of this encounter
--- OUTSIDE RECORDS SUMMARY | 2024-12-14 14:48 | XMS_ITS | Encounter Summary ---
Author Organization [facility] Address [address] [place] [address] Phone Care Team Providers Care Dry Curer Name Role Phone Susana Landrum DO Primary Care Provider [phone] Reason for Visit * Reason Comments Med Refill Encounter Details Date Type Department Care Team (Late st Contact Info) Description 08/17/2022 [facility]ill [facility] [address] [place] [address] Rajat Patiño MD Social History Tobacco Use [...] on filedocumented in this encounter Care Teams Dry Curer Relationship Specialty Start Date End Date Susana Landrum DO [address] [place] [phone] PCP - General Pediatrics 08/12/21 documented as of this encounter
== END 2024-12-14 14:44 | disposition home or self-care (01) ==
LOC: HO.MAMMO 14:43
PROVIDERS: PCP Pediatrics; Visit Provider Pediatrics
DX: Z12.31 Encounter for screening mammogram for malignant neoplasm of breast (principal)
CPT/HCPCS: 77063; 77067

== ENCOUNTER → 2024-12-14 15:15 | Outpatient (BNV) | payer MEDICARE, SELFPAY | PROVIDERS: PCP Pediatrics; Visit Provider Internal Medicine | DX: Z12.31 Encounter for screening mammogram for malignant neoplasm of breast (principal) | CPT/HCPCS: 77063; 77067 ==

== ENCOUNTER 2025-02-12 15:32 | Emergency (ER) | payer MEDICARE, SELFPAY ==
--- NOTE | ~2025-02-12 | CT_ITS ---
CLINICAL HISTORY: head strike on AC CT head without contrast Comparison: None Findings: No intra-axial mass, midline shift, hydrocephalus, or acute hemorrhage. Involutional change brain parenchyma, compatible with age. Mild white matter disease. There is no sinus or mastoid fluid. The orbits are within normal limits. Left frontal scalp contusion. No skull fracture. IMPRESSION: No skull fracture or intracranial hemorrhage. This document has been electronically signed by: Lorene Constantino MD on 02/12/2025 17:13:50
--- NOTE | ~2025-02-12 | CT_ITS ---
CLINICAL HISTORY: fall, +head strike CT cervical spine without contrast Comparison: None Findings: Vertebral alignment is within normal limits. Multilevel degenerative disc disease and facet osteoarthritis. No central canal stenosis. No acute fractures or dislocations. Visualized intracranial contents are unremarkable. Soft tissues of the neck are normal. There are multiple nodules within the visualized left upper lobe. Nodules measure up to 6 mm in size. 3 mm nodule also present within the right upper lobe. IMPRESSION: 1. No cervical spine fracture. 2. There are multiple nodules within the visualized lungs. Recommend further evaluation with chest CT when clinically appropriate. This document has been electronically signed by: Lorene Constantino MD on 02/12/2025 17:17:20
[2025-02-12 15:41] VITALS: BP 126/69; PULSE 64; RESP 16; TEMP 36.4; O2SAT 98; BMI 29.7
--- NOTE | 2025-02-12 15:44 | ED.FALL ---
HPI - Fall General Chief Complaint: Head Injury Stated Complaint: Fall/Hematoma to head on blood thinners Time Seen by Provider: 02/12/25 18:04 Source: patient, family and RN notes reviewed Mode of arrival: ambulatory Limitations: no limitations History of Present Illness ED Provider: Daphne Pascual PA-C HPI Narrative: This is a 75-year-old female who presents emergency department with complaints of fall. Patient accidentally tripped and fell in the parking lot and struck her left side of her forehead. She was with her daughter who was going to have a physical examination. She states that she did not lose consciousness. She is on Eliquis for atrial fibrillation. She he reports a mild headache. She denies any symptoms prior to the fall. She states that this was purely a trip and fall. She denies any chest pain, shortness of breath, abdominal pain, nausea, vomiting or diarrhea. No other injury. No other complaints or concerns at this time. MD complaint: fall Onset (ago): day(s) Fall from: standing Fall witnessed: yes, by family Place fall occurred: street Loss of consciousness: none Prolonged down time: no Symptoms prior to fall: none Context: tripped/slipped Location of injury: head and face Associated symptoms (after fall): headache Related Data Home Medications ?Medication ?Instructions ?Recorded ?Confirmed albuterol sulfate 90 mcg/actuation inhalation 11/29/23 10/10/24 aerosol inhaler (Ventolin HFA) amiodarone 200 mg tablet 200 mg PO DAILY 11/29/23 10/10/24 apixaban 5 mg tablet (Eliquis) 5 mg PO BID 11/29/23 10/10/24 bupropion HCl 200 mg tablet,12 hr 200 mg PO BID 11/29/23 10/10/24 sustained-release cetirizine 10 mg capsule (Zyrtec) 10 mg PO DAILY PRN 11/29/23 10/10/24 cholecalciferol (vitamin D3) 50 50 mcg PO DAILY 11/29/23 10/10/24 mcg (2,000 unit) capsule fluticasone fur. 200 mcg-umeclid 1 inh inhalation DAILY PRN 11/29/23 10/10/24 62.5 mcg-vilant 25 mcg inhalat.powder (Trelegy Ellipta) gabapentin 300 mg capsule 300 mg PO BID 11/29/23 10/10/24 insulin aspart U-100 100 unit/mL subcut 11/29/23 10/10/24 (3 mL) subcutaneous pen (Novolog FlexPen U-100 Insulin aspart) insulin glargine 100 unit/mL (3 35 unit subcut 11/29/23 10/10/24 mL) subcutaneous pen (Lantus Solostar U-100 Insulin) melatonin 3 mg capsule 3 mg PO BEDTIME PRN 11/29/23 10/10/24 montelukast 10 mg tablet 10 mg PO DAILY 11/29/23 10/10/24 omeprazole 40 mg capsule,delayed 40 mg PO BID 11/29/23 10/10/24 release alendronate 70 mg tablet 70 mg PO QWEEK 12/07/23 10/10/24 cyclosporine 0.05 % eye drops in a drp ophthalmic (eye) 12/07/23 10/10/24 dropperette duloxetine 30 mg capsule,delayed 30 mg PO DAILY 12/07/23 10/10/24 release rosuvastatin 20 mg tablet 20 mg PO BEDTIME 12/07/23 10/10/24 trazodone 50 mg tablet 50 mg PO BEDTIME 12/07/23 10/10/24 cyanocobalamin (vitamin B-12) mcg sublingual 04/11/24 10/10/24 2,500 mcg sublingual tablet (Vitamin B-12) vitamin E (dl, acetate) 45 mg (100 mg PO DAILY 04/11/24 10/10/24 unit) capsule Previous Rx's ?Medication ?Instructions ?Recorded amlodipine 5 mg tablet 5 mg PO BID #180 tabs 05/14/24 hydralazine 25 mg tablet 50 mg (2 x 25 mg) PO TID #180 tabs 06/29/24 spironolactone 50 mg tablet 50 mg PO BID #180 tabs 01/28/25 Allergies Allergy/AdvReac Type Severity Reaction Status Date / Time codeine Allergy Unknown Verified 02/12/25 15:49 furosemide Allergy Unknown Verified 02/12/25 15:49 lisinopril Allergy Cough Verified 02/12/25 15:49 oxycodone Allergy Itching Verified 02/12/25 15:49 tetracycline Allergy Nausea and Verified 02/12/25 15:49 Vomiting Erythromycin Allergy Vomiting Uncoded 02/12/25 15:49 Hydrocodone-Acetaminophen Allergy Itching Uncoded 02/12/25 15:49 Talwin Pentazocine Allergy Itching Uncoded 02/12/25 15:49 Review of Systems Review of Systems: Yes all other systems are reviewed and are negative Constitutional: Constitutional: Reports as per [facility] Past Medical History Medical History (Updated 02/12/25 @ 18:07 by ANALISA Uriostegui) Venous insufficiency (chronic) (peripheral) Unsteadiness on feet Type 2 diabetes mellitus Stage 3 chronic kidney disease Spondylolisthesis of lumbar region Spinal stenosis Solitary pulmonary nodule Obstructive sleep apnea on CPAP Seizure Restlessness Restless leg syndrome Primary osteoarthritis Pneumonia Personal history of other diseases of digestive system Paroxysmal atrial fibrillation Pancreatitis Pain in both feet Overactive bladder Other rheumatic aortic valve diseases Other lack of coordination Other hyperlipidemia Other emphysema Onychomycosis Occlusion and stenosis of unspecified carotid artery Obstructive sleep apnea syndrome Malignant essential hypertension Low back pain Localized osteoporosis [[place]] Localization-related (focal) (partial) symptomatic epilepsy and epileptic syndromes with simple partial seizures, intractable, with status epilepticus Irritable bowel syndrome Insomnia Inflammatory spondylopathy of lumbar region Hypertensive retinopathy Hypersomnia with sleep apnea Guttate psoriasis Generalized muscle weakness Essential hypertension Esophageal reflux Encounter for other specified surgical aftercare Diverticulitis of colon Disorder of eye Difficulty walking Depressive disorder Functional constipation Congestive heart failure Carpal tunnel syndrome of left wrist Atrial fibrillation Atherosclerotic heart disease of [place] coronary artery without angina pectoris Asthma Anxiety Adjustment disorder with mixed anxiety and depressed mood Anemia Surgical History History of cholecystectomy Hx of cataract surgery Family History Family History Family/Other Diabetes Social History Social History Alcohol intake: never Patient Tobacco Use Status: Never used Tobacco Advance Directives: No Advance Directives Information Provided: Yes Do you have a plan to hurt others: No Plan Physical Exam Vital Signs: Vital Signs: Last Vital Signs Temp 97.5 F 02/12/25 18:13 Pulse 76 02/12/25 18:13 Resp 16 02/12/25 18:13 BP 134/67 02/12/25 18:13 Pulse Ox 96 02/12/25 15:47 O2 Del Method Nasal Cannula 02/12/25 18:13 BMI result Body Mass Index 29.3 Const: General: cooperative, comfortable and no acute distress Orientation/consciousness: patient oriented x3 Limitations: no limitations HEENT: Other: No hemotympanum. Left frontal hematoma noted, no open wounds or lacerations. Head: Yes normal to inspection, Yes normocephalic, Yes atraumatic, No palpable skull fracture and No raccoon eyes Ears: hearing grossly normal bilaterally and TM's normal bilaterally General nose exam: Normal external nose present Face and sinus: Yes normal facial exam Mouth: Normal oral and palatal mucosa present, oropharynx normal and moist mucous membranes Throat: Yes posterior oropharynx normal Eyes: General: appearance normal, both eyes and all related structures Eyelids: Yes eyelids normal Conjunctivae: conjunctivae normal Sclerae: sclerae normal Pupils: Equal, round and reactive pupils present EOM: EOMs intact bilaterally Neck: Other: No midline spine tenderness on examination. Neck: Yes normal visual inspection, Yes full ROM and Yes no lymphadenopathy Lymphatic: no lymphadenopathy noted Chest: Chest palpation & inspection: normal inspection of the chest Resp: Effort & Inspection: normal respiratory effort and able to speak in complete sentences Auscultation: clear to auscultation bilaterally, no crackles, no rales, no rhonchi and no wheezes Cardio: Rate: regular rate Rhythm: regular rhythm Heart sounds: S1 normal heart sound present and S2 normal heart sound present GI: Inspection: Yes normal to inspection Skin: General skin exam: no rashes or lesions noted Trauma: no lacerations or abrasions Wounds: no wounds Neuro: General: patient oriented x3 and moves all extremities Cranial nerves: Yes CN's II-XII intact bilaterally and Yes Equal, round and reactive pupils present Cognition (Neuro): normal cognition Gait exam (Neuro): Normal gait present Motor exam (neuro): 5/5 motor strength present throughout and Pronator motor function not present Romberg Test: Negative Extrem: General: Yes normal to inspection Right upper extremity: normal to inspection Left upper extremity: normal to inspection Right lower extremity: normal to inspection Left lower extremity: normal to inspection Course Reevaluation(s) Reevaluation #1: CT head and neck revealed no acute findings. She does have multiple nodules visualized within the lungs. Discussed findings with family. She was ambulatory in department without difficulty. Repeat neurologic examination with no acute findings. She will follow-up given strict return precautions. She understands and agrees with plan. Patient stable for discharge. Medications Administered Discontinued Medications Generic Name Dose Route Start Last Admin Trade Name Nhan PRN Reason Stop Dose Admin Acetaminophen 650 mg 02/12/25 18:05 02/12/25 18:16 Acetaminophen 325 Mg Tablet PO 02/12/25 18:06 650 mg ONCE ONE Administration Medical Decision Making Medical Decision Making [facility] Narrative: This is a [id number], with a history of atrial fibrillation on Eliquis, who presents to the ER with a complaint of fall. Patient reports that she tripped and fell in the parking lot and struck the left side of her forehead. Had mechanical fall in parking lot and struck the left side of her head. No LOC. Reporting headache. +hematoma. Patient is alert and oriented x4, she is neurologically intact with no focal deficits on examination. Patient with hematoma, given that she is on anticoagulation, differential diagnoses include ICH, SDH, head contusion. Will obtain CT head and neck to rule out any acute pathology. Differential Diagnosis Differential Diagnoses: The differential diagnosis associated with the presentation includes See above Radiology Impression Discussion of test interpretation with radiology: I have reviewed the radiologist's reading. Radiologist Impression: [place] [id number] CT Scan Report Signed Patient: Margi Blake MR#: [id number] : 1950 Acct:[id number] Age/Sex: 75 / F ADM Date: 02/12/25 Loc: HO.ED Attending Dr: Ordering Physician: Daphne Granger Date of Service: 02/12/25 Procedure(s): CT cervical spine wo IV con Accession Number(s): [id number] cc: STEPHON PETERS DO; Daphne Granger~ Report Number: [id number]: Total DLP = 970.00 mGy-cm CLINICAL HISTORY: fall, +head strike CT cervical spine without contrast Comparison: None Findings: Vertebral alignment is within normal limits. Multilevel degenerative disc disease and facet osteoarthritis. No central canal stenosis. No acute fractures or dislocations. Visualized intracranial contents are unremarkable. Soft tissues of the neck are normal. There are multiple nodules within the visualized left upper lobe. Nodules measure up to 6 mm in size. 3 mm nodule also present within the right upper lobe. IMPRESSION: 1. No cervical spine fracture. 2. There are multiple nodules within the visualized lungs. Recommend further evaluation with chest CT when clinically appropriate. This document has been electronically signed by: Lorene Constantino MD on 02/12/2025 17:17:20 Dictated By: Lorene Constantino MD Signed By: <Electronically signed [address] [address] [address] Scan Report Signed Patient: Margi Blake MR#: [id number] : 1950 Acct:[id number] Age/Sex: 75 / F ADM Date: 02/12/25 Loc: HO.ED Attending Dr: Ordering Physician: Daphne Granger Date of Service: 02/12/25 Procedure(s): CT head/brain wo IV con Accession Number(s): [id number] cc: STEPHON PETERS DO; Daphne Granger~ Report Number: [id number]: Total DLP = 0.00 mGy-cm CLINICAL HISTORY: head strike on AC CT head without contrast Comparison: None Findings: No intra-axial mass, midline shift, hydrocephalus, or acute hemorrhage. Involutional change brain parenchyma, compatible with age. Mild white matter disease. There is no sinus or mastoid fluid. The orbits are within normal limits. Left frontal scalp contusion. No skull fracture. IMPRESSION: No skull fracture or intracranial hemorrhage. This document has been electronically signed by: Lorene Constantino MD on 02/12/2025 17:13:50 Dictated By: Lorene Constantino MD Discharge Plan Discharge Clinical Impression: Contusion of head Patient Disposition: Home, Self-Care Instructions: Hematoma (ED), Facial Contusion (ED) Additional Instructions: You were seen in the emergency department with concerns for head strike. Your head CT and cervical spine CT show no abnormalities from the fall. You do have multiple lung nodules seen in the left and right upper lobe of your lungs. You need to follow-up with the your primary care physician for further evaluation of these. Apply ice to the region to help with swelling and pain. Take Tylenol as needed for pain. If any new or worsening symptoms occur including but not limited to worsening headaches, dizziness, changes in behavior, severe chest pain or shortness of breath, please seek emergent care. Prescriptions: No Action amlodipine 5 mg tablet 5 mg PO BID Qty: 180 3RF hydralazine 25 mg tablet 50 mg PO TID Qty: 180 10RF spironolactone 50 mg tablet 50 mg PO BID Qty: 180 2RF cyanocobalamin (vitamin B-12) [Vitamin B-12] 2,500 mcg tablet, sublingual sublingual albuterol sulfate [Ventolin HFA] 90 mcg/actuation HFA aerosol inhaler inhalation amiodarone 200 mg tablet 200 mg PO DAILY Eliquis 5 mg tablet 5 mg PO BID bupropion HCl 200 mg tablet sustained-release 12 hr 200 mg PO BID Zyrtec 10 mg capsule 10 mg PO DAILY PRN cholecalciferol (vitamin D3) 50 mcg (2,000 unit) capsule 50 mcg PO DAILY gabapentin 300 mg capsule 300 mg PO BID insulin aspart U-100 [Novolog FlexPen U-100 Insulin] 100 unit/mL (3 mL) insulin pen subcut insulin glargine [Lantus Solostar U-100 Insulin] 100 unit/mL (3 mL) insulin pen 35 unit subcut melatonin 3 mg capsule 3 mg PO BEDTIME PRN montelukast 10 mg tablet 10 mg PO DAILY omeprazole 40 mg capsule,delayed release(DR/EC) 40 mg PO BID Trelegy Ellipta 200-62.5-25 mcg blister with device 1 inh inhalation DAILY PRN duloxetine 30 mg capsule,delayed release(DR/EC) 30 mg PO DAILY trazodone 50 mg tablet 50 mg PO BEDTIME rosuvastatin 20 mg tablet 20 mg PO BEDTIME alendronate 70 mg tablet 70 mg PO QWEEK cyclosporine 0.05 % dropperette ophthalmic (eye) vitamin E (dl, acetate) 45 mg (100 unit) capsule PO DAILY Interventions: ED Discharge Assessment Last Done: 02/12/25 18:13 Discharge Date/Time: 02/12/25 18:43 Print Language: Israeli
[2025-02-12 15:47] VITALS: BP 126/69; PULSE 69; RESP 16; TEMP 37; O2SAT 96; BMI 29.3
[2025-02-12 18:13] VITALS: BP 134/67; PULSE 76; RESP 16; TEMP 36.4
[2025-02-12] MEDS: Acetaminophen 325 MG TABLET 650 MG PO (18:16)
--- OUTSIDE RECORDS SUMMARY | 2025-02-12 19:12 | XMS_ITS | Encounter Summary ---
Author Organization [facility] Address [address] [place] [address] Care Team Providers Care Pedicurist Name Role Phone Contreras Camacho MD Primary Care Provider [phone] Reason for Visit * Reason Onset Date Comments TEST RESULTS 06/05/2013 Encounter Details Date Type Department Care Team Description 06/05/2013 Telephone Physiatry - [address] [address] Lidya Mg PA-C TEST RESULTS Social History Tobacco Use Types Packs/Day Years Used Date Smoking Tobacco: Never Smokeless Tobacco: Never Alcohol Use Standard Drinks/Week Comments No 0 (1 standard drink = 0.6 oz pur e alcohol) Sex Assigned at Date Recorded Not on file documented as of this encounter Miscellaneous Notes * Telephone Encounter - Lidya Mg PA-C - 06/05/2013 4:44 PM EDT Reviewed MRI results. She states she will follow up with her kidney specialist re: atrophy of upperpole left kidney * Telephone Encounter - Ligia Miller M.A. - 06/05/2013 9:24 AM EDT Phone busy * Telephone Encounter - Diya Mcmanus - 06/05/2013 9:21 AM EDT Inform patient: ANY URGENT OR ABNORMAL RESULTS WIILL RESULT IN A CALL BACK TO THE PATIENT RITCHIE. Type of test: :MRI Date test was performed: 05/31/2013 Where was the test performed: [facility] Who ordered this test?: Lidya Mg Is the doctor here today?: YES Can the message wait until the doctor returns?: YES IF PATIENT'S PCP IS NOT IN INSTRUCT PATIENT THAT THEY WILL RECEIVE A CALL BACK WHEN THE PCP IS IN THE OFFICE NEXT. documented in this encounter Plan of Treatment Not on file documented as of this encounter Visit Diagnoses Not on filedocumented in this encounter Care Teams Pedicurist Relationship Specialty Start Date End Date Contreras Camacho MD [address] [place] [id number] PCP - General 07/15/1991 documented as of this encounter
--- OUTSIDE RECORDS SUMMARY | 2025-02-12 19:12 | XMS_ITS | Encounter Summary ---
Author Organization [facility] Address [address] [place] [address] Care Team Providers Care Director E Learning Name Role Phone Contreras Camacho MD Primary Care Provider [phone] Encounter Details Date Type Department Care Team Description 05/13/2013 [facility] Medical Records [address] [place] [id number] Kai Jim MD Social History Tobacco Use Types Packs/Day [...] filedocumented in this encounter Care Teams Director E Learning Relationship Specialty Start Date End Date Contreras Camacho MD [address] [place] [address] [id number] PCP - General 07/15/1991 documented as of this encounter
--- OUTSIDE RECORDS SUMMARY | 2025-02-12 19:12 | XMS_ITS | Encounter Summary ---
Author Organization [facility] Address [address] [place] [address] Care Team Providers Care Scheme Technician Name Role Phone Contreras Camacho MD Primary Care Provider [phone] Encounter Details Date Type Department Care Team Description 08/17/2023 [facility] Medical Records [address] [place], [place] [id number] [place] [address] Social History Tobacco Use Types Packs/Day Years Used Date Smoking Tobacco: Never Smokeless Tobacco: Never Alcohol Use Standard Drinks/Week Comments No 0 (1 standard drink = 0.6 oz pur e alcohol) Sex Assigned at Date Recorded Not on file documented as of this encounter Plan of Treatment Not on file documented as of this encounter Procedures Procedure Name Priority Date/Time Associated Diagnosis Comments OUTSIDE ECHO Routine 08/17/2023 documented in this encounter Results * OUTSIDE ECHO (08/17/2023) Provider Default CARDIOLOGY [facility] documented in this encounter Visit Diagnoses Not on filedocumented in this encounter Care Teams Scheme Technician Relationship Specialty Start Date End Date Contreras Camacho MD [address] [place] [address] [id number] PCP - General 07/15/1991 documented as of this encounter
--- OUTSIDE RECORDS SUMMARY | 2025-02-12 19:12 | XMS_ITS | Encounter Summary ---
Author Organization [facility] Address [address] [place] [address] Care Team Providers Care Immigration Judge Name Role Phone Contreras Camacho MD Primary Care Provider [phone] Encounter Details Date Type Department Care Team Description 02/05/2020 Physical Therapy Nurse Report Medical Records [address] [place] [address] Dave Angulo MD Social History Tobacco Use [...] on filedocumented in this encounter Care Teams Immigration Judge Relationship Specialty Start Date End Date Contreras Camacho MD [address] [place], [place] [phone] PCP - General 07/15/1991 documented as of this encounter
--- OUTSIDE RECORDS SUMMARY | 2025-02-12 19:12 | XMS_ITS | Encounter Summary ---
Author Organization [facility] Address [address] [place] [address] Care Team Providers Care Electrical Hardware Engineer Name Role Phone Contreras Camacho MD Primary Care Provider [phone] Encounter Details Date Type Department Care Team Description 05/13/2013 [facility] Medical Records [address] [place] [address] Chilo Francois Social History Tobacco Use Types Packs/Day Years [...] on filedocumented in this encounter Care Teams Electrical Hardware Engineer Relationship Specialty Start Date End Date Contreras Camacho MD [address] [place], [place] [phone] PCP - General 07/15/1991 documented as of this encounter
--- OUTSIDE RECORDS SUMMARY | 2025-02-12 19:12 | XMS_ITS | Encounter Summary ---
Author Organization [facility] Address [address] [place] [address] Care Team Providers Care Apron Operator Name Role Phone Contreras Camacho MD Primary Care Provider [phone] Encounter Details Date Type Department Care Team Description 08/03/2017 Armored Truck Driver Report Medical Records [address] [place] [id number] [facility] Tobacco Use Types Packs/Day Years Used Date Smoking Tobacco: Never Smokeless Tobacco: Never Alcohol Use Standard Drinks/Week Comments No 0 (1 standard drink = 0.6 oz pur e alcohol) Sex Assigned at Date Recorded Not on file documented as of this encounter Plan of Treatment Not on file documented as of this encounter Visit Diagnoses Not on filedocumented in this encounter Care Teams Apron Operator Relationship Specialty Start Date End Date Contreras Camacho MD [address] [place], [place] [phone] PCP - General 07/15/1991 documented as of this encounter
--- OUTSIDE RECORDS SUMMARY | 2025-02-12 19:12 | XMS_ITS | Encounter Summary ---
Author Organization [facility] Address [address] [place] [address] Care Team Providers Care Material Processor Name Role Phone Contreras Camacho MD Primary Care Provider [phone] Encounter Details Date Type Department Care Team Description 09/11/2016 Release of Information Medical Records [address] [place] [address] Abstract, Provider Social History Tobacco Use Types Packs/Day Years [...] on filedocumented in this encounter Care Teams Material Processor Relationship Specialty Start Date End Date Contreras Camacho MD [address] [place] [address] [id number] PCP - General 07/15/1991 documented as of this encounter
--- OUTSIDE RECORDS SUMMARY | 2025-02-12 19:12 | XMS_ITS | Encounter Summary ---
Author Organization [facility] Address [address] [place] [address] Care Team Providers Care Mobile Equipment Servicer Name Role Phone Contreras Camacho MD Primary Care Provider [phone] Encounter Details Date Type Department Care Team Description 03/27/2013 Business Doc Medical Records [address] [place] [address] Abstract, Provider Social History Tobacco Use Types [...] on filedocumented in this encounter Care Teams Mobile Equipment Servicer Relationship Specialty Start Date End Date Contreras Camacho MD [address] [place], [place] [phone] PCP - General 07/15/1991 documented as of this encounter
--- OUTSIDE RECORDS SUMMARY | 2025-02-12 19:12 | XMS_ITS | Encounter Summary ---
Author Organization [facility] Address [address] [place] [address] Care Team Providers Care Vp Strategic Partnerships Name Role Phone Contreras Camacho MD Primary Care Provider [phone] Encounter Details Date Type Department Care Team Description 03/22/2016 Expansion Joint Builder Report Medical Records [address] [place] [id number] Cary Arteaga Social History Tobacco Use Types Packs/Day Years [...] on filedocumented in this encounter Care Teams Vp Strategic Partnerships Relationship Specialty Start Date End Date Contreras Camacho MD [address] [place], [place] [phone] PCP - General 07/15/1991 documented as of this encounter
--- OUTSIDE RECORDS SUMMARY | 2025-02-12 19:12 | XMS_ITS | Encounter Summary ---
Author Organization [facility] Address [address] [place] [address] Care Team Providers Care Lithograph Press Operator Tinware Name Role Phone Contreras Camacho MD Primary Care Provider [phone] Encounter Details Date Type Department Care Team Description 06/26/2010 Eye Kiln Packer Report Medical Records [address] [place] [address] Anny John [address] [place] [address] Social History Tobacco Use Types Packs/Day Years Used Date Smoking Tobacco: Never Alcohol Use Standard Drinks/Week Comments No 0 (1 standard drink = 0.6 oz pur e alcohol) Sex Assigned at Date Recorded Not on file documented as of this encounter Plan of Treatment Not on file documented as of this encounter Visit Diagnoses Not on filedocumented in this encounter Care Teams Lithograph Press Operator Tinware Relationship Specialty Start Date End Date Contreras Camacho MD [address] [place], [place] [phone] PCP - General 07/15/1991 documented as of this encounter
--- OUTSIDE RECORDS SUMMARY | 2025-02-12 19:12 | XMS_ITS | Encounter Summary ---
Author Organization [facility] Address [address] [place] [address] Care Team Providers Care Whipped Topping Mixer Name Role Phone Contreras Camacho MD Primary Care Provider [phone] Encounter Details Date Type Department Care Team Description 06/17/2016 PERSONNEL SPECIALIST/Mass[place] Report Medical Records [address] [place] [address] Abstract, Provider Social History Tobacco Use Types [...] on filedocumented in this encounter Care Teams Whipped Topping Mixer Relationship Specialty Start Date End Date Contreras Camacho MD [address] [place], [place] [id number] PCP - General 07/15/1991 documented as of this encounter
--- OUTSIDE RECORDS SUMMARY | 2025-02-12 19:12 | XMS_ITS | Encounter Summary ---
Author Organization [facility] Address [address] [place] [address] Care Team Providers Care Assistant Fitness Manager Name Role Phone Contreras Camacho MD Primary Care Provider [phone] Encounter Details Date Type Department Care Team Description 07/21/2010 Business Doc Medical Records [address] [place] [address] Abstract, Provider Social History Tobacco Use Types [...] on filedocumented in this encounter Care Teams Assistant Fitness Manager Relationship Specialty Start Date End Date Contreras Camacho MD [address] [place], [place] [phone] PCP - General 07/15/1991 documented as of this encounter
--- OUTSIDE RECORDS SUMMARY | 2025-02-12 19:12 | XMS_ITS | Encounter Summary ---
Author Organization [facility] Address [address] [place] [address] Care Team Providers Care Gun Stocker Name Role Phone Contreras Camacho MD Primary Care Provider [phone] Reason for Visit * Reason Comments E-prescribe Rx Request Encounter Details Date Type Department Care Team Description 04/14/2017 Refill Gastroenterology - [address] [address] Natalie Leo MD E-prescribe Rx Request Social History Tobacco Use Types Packs/Day Years Used Date Smoking Tobacco: Never Smokeless Tobacco: Never Alcohol Use Standard Drinks/Week Comments No 0 (1 standard drink = 0.6 oz pur e alcohol) Sex Assigned at Date Recorded Not on file documented as of this encounter Miscellaneous Notes * Telephone Encounter - Boone Daley PA-C - 04/14/2017 10:34 AM EDT Needs to see Dr. Leo. * Telephone Encounter - Natalie De Los Santos - 04/14/2017 10:[address] Leo's absence needs refill please documented in this encounter Plan of Treatment Not on file documented as of this encounter Visit Diagnoses Not on filedocumented in this encounter Care Teams Gun Stocker Relationship Specialty Start Date End Date Skalski, Contreras S., MD [address] [place] [address] PCP - General 07/15/1991 documented as of this encounter
--- OUTSIDE RECORDS SUMMARY | 2025-02-12 19:12 | XMS_ITS | Encounter Summary ---
Author Organization [facility] Address [address] [place] [address] Care Team Providers Care Administrative Assistant Name Role Phone Contreras Camacho MD Primary Care Provider [phone] Encounter Details Date Type Department Care Team Description 02/11/2016 Informatics Manager Report Medical Records [address] [place] [address] Adryan Pedraza Social History Tobacco Use Types Packs/Day Years [...] on filedocumented in this encounter Care Teams Administrative Assistant Relationship Specialty Start Date End Date Contreras Camacho MD [address] [place] [address] [id number] PCP - General 07/15/1991 documented as of this encounter
--- OUTSIDE RECORDS SUMMARY | 2025-02-12 19:12 | XMS_ITS | Encounter Summary ---
Author Organization [facility] Address [address] [place] [address] Care Team Providers Care Director Corporate Communications Name Role Phone Contreras Camacho MD Primary Care Provider [phone] Encounter Details Date Type Department Care Team Description 08/29/2019 Almond Cutting Machine Tender Report Medical Records [address] [place] [address] Dave Angulo MD Social History Tobacco Use [...] filedocumented in this encounter Care Teams Director Corporate Communications Relationship Specialty Start Date End Date Contreras Camacho MD [address] [place], [place] [phone] PCP - General 07/15/1991 documented as of this encounter
--- OUTSIDE RECORDS SUMMARY | 2025-02-12 19:12 | XMS_ITS | Encounter Summary ---
Author Organization [facility] Address [address] [place] [address] Care Team Providers Care Motor Vehicle Parts Interpreter Name Role Phone Contreras Camacho MD Primary Care Provider [phone] Encounter Details Date Type Department Care Team Description 02/08/2018 Administrative Office Assistant Report Medical Records [address] [place] [address] [facility] Tobacco Use Types Packs/Day Years [...] on filedocumented in this encounter Care Teams Motor Vehicle Parts Interpreter Relationship Specialty Start Date End Date Contreras Camacho MD [address] [place], [place] [phone] PCP - General 07/15/1991 documented as of this encounter
--- OUTSIDE RECORDS SUMMARY | 2025-02-12 19:13 | XMS_ITS | Encounter Summary ---
Author Organization [facility] Address [address] [place] [address] Care Team Providers Care Room Manager Name Role Phone Contreras Camacho MD Primary Care Provider [phone] Encounter Details Date Type Department Care Team Description 04/01/2011 [facility] Medical Records [address] [place] [address] Shanta Wade MD Social History Tobacco Use Types Packs/Day [...] on filedocumented in this encounter Care Teams Room Manager Relationship Specialty Start Date End Date Contreras Camacho MD [address] [place], [place] [phone] PCP - General 07/15/1991 documented as of this encounter
--- OUTSIDE RECORDS SUMMARY | 2025-02-12 19:13 | XMS_ITS | Encounter Summary ---
Author Organization [facility] Address [address] [place] [address] Care Team Providers Care Coremaker Experimental Name Role Phone Contreras Camacho MD Primary Care Provider [phone] Encounter Details Date Type Department Care Team Description 07/08/2014 Night Triage Doc Medical Records [address] [place] [address] Abstract, Provider Social History Tobacco Use Types [...] on filedocumented in this encounter Care Teams Coremaker Experimental Relationship Specialty Start Date End Date Contreras Camacho MD [address] [place] [address] [id number] PCP - General 07/15/1991 documented as of this encounter
--- OUTSIDE RECORDS SUMMARY | 2025-02-12 19:13 | XMS_ITS | Encounter Summary ---
Author Organization [facility] Address [address] [place] [address] Care Team Providers Care Anodizer Name Role Phone Contreras Camacho MD Primary Care Provider [phone] Encounter Details Date Type Department Care Team Description 11/02/2012 Electronic Parts Salesperson Report Medical Records [address] [place] [address] Cary Arteaga Social History Tobacco Use Types [...] on filedocumented in this encounter Care Teams Anodizer Relationship Specialty Start Date End Date Contreras Camacho MD [address] [place], [place] [phone] PCP - General 07/15/1991 documented as of this encounter
--- OUTSIDE RECORDS SUMMARY | 2025-02-12 19:13 | XMS_ITS | Encounter Summary ---
Author Organization [facility] Address [address] [place] [address] Care Team Providers Care Reclaimer Name Role Phone Contreras Camacho MD Primary Care Provider [phone] Encounter Details Date Type Department Care Team Description 11/05/2012 [facility] Medical Records [address] [place] [address] Missy Dover Social History Tobacco Use Types Packs/Day Years [...] on filedocumented in this encounter Care Teams Reclaimer Relationship Specialty Start Date End Date Contreras Camacho MD [address] [place] [address] [id number] PCP - General 07/15/1991 documented as of this encounter
--- OUTSIDE RECORDS SUMMARY | 2025-02-12 19:13 | XMS_ITS ---
Author Organization [facility] Care Team Providers Care Roller Mechanic Name Role Phone Yanet Correa Unavailable Unavailable Sagrario Harding Unavailable Unavailable Quoc Bowers Unavailable Unavailable Alejandrina Murillo Unavailable Unavailable Ana Malave Unavailable Unavailable Allergies and adverse reactions Code CodeSystem Substance Reaction Severity StartDate Concern Status Zestril Unknown 01/07/2017 active 34301 RXNORM Tetracycline Unknown 01/07/2017 active Talwin Nx Unknown 01/07/2017 active 66015 RXNORM Lisinopril Unknown 06/24/2020 active Lasix Unknown 01/07/2017 active 4053 RXNORM Erythromycin Unknown 01/07/2017 active 2670 RXNORM Codeine Unknown 01/07/2017 active Care Team Name Role Address Phone Organization Claritza Bowers PCP [address] [facility] [address], [place], [address], [facility] (Office): [facility] 06/24/2020 - 07/08/2020 Yanet Correa Attending Physician [address] [place] [address], [address], [facility] (Office): [facility] 06/24/2020 - 07/08/2020 Sagrario Harding Attending Physician [address] [place] [address] [address], [address], [place] (Office): [facility] 06/24/2020 - 07/08/2020 Alejandrina Murillo Attending Physician [address] [facility] [address], [place], [address], [facility] (Office): [facility] 06/24/2020 - 07/08/2020 Ana Malave Attending Physician [address] [facility] [address], [place], [address], [facility] (Office): [facility] 06/24/2020 - 07/08/2020 Immunizations Immunization Status Vaccine Details Vaccine Code CodeSystem Date Notes Influenza completed Influenza, split virus, trivalent, injectable, contains preservative 141 CVX created date: 07/10/2020 administere d date: 08/24/2018 Influenza completed Influenza, split virus, trivalent, injectable, contains preservative 141 CVX created date: 01/07/2017 administere d date: 04/18/2016 Tetanus completed tetanus immune globulin 13 CVX created date: 07/10/2020 administere d date: 11/09/2013 Zostavax(Shingles) completed varicella zos ter immune globulin 36 CVX created date: 07/10/2020 administere d date: 04/02/2016 Pneumococcal Conjugate Vaccine (PCV13) completed pneumococcal conjugate vaccine, 13 valent 133 CVX created date: 07/10/2020 administere d date: 09/27/2011 Pneumococcal Polysaccharide Vaccine (PPSV23) completed pneumococcal polysaccharide vaccine, 23 valent 33 CVX created date: 07/10/2020 administere d date: 11/19/2019 Mental Status Section Date Assessment Total Score Description 07/08/2020 CAM 0 No delirium ind icated 06/30/2020 BIMS 15 cognitively int act CAM 0 No delirium ind icated PHQ-9 03 minimal depress ion Problems Problem # Description Date of onset Resolved Date Code CodeSystem Concern Status 1 ADJUSTMENT DISORDER WITH MIXED ANXIETY AND DEPRESSED MOOD [address] active 2 ANEMIA IN CHRONIC KIDNEY DISEASE [address] active 3 CARPAL TUNNEL SYNDROME, LEFT UPPER LIMB [address] active 4 CHRONIC OBSTRUCTIVE PULMONARY DISEASE, UNSPECIFIED 08641887 SNOMED CT active 5 DIFFICULTY IN WALKING, NOT ELSEWHERE CLASSIFIED 992456374 SNOMED CT active 6 ENCOUNTER FOR OTHER SPECIFIED SURGICAL AFTERCARE 156708491 SNOMED CT active 7 [address]ASTRIC PAIN 4544[address] active 8 FUSION OF SPINE, LUMBAR REGION 602778485 SNOMED CT active 9 GASTRO-ESOPHAGEAL REFLUX DISEASE WITHOUT ESOPHAGITIS 188781463 SNOMED CT active 10 GUTTATE PSORIASIS 53595144 SNOMED CT active 11 HYPERTENSIVE RETINOPATHY, UNSPECIFIED EYE [address] active 12 INSOMNIA, UNSPECIFIED 186604295 SNOMED CT active 13 LOCALIZATION-RELAT ED (FOCAL) (PARTIAL) SYMPTOMATIC EPILEPSY AND EPILEPTIC SYNDROMES WITH SIMPLE PARTIAL SEIZURES, NOT INTRACTABLE, WITH STATUS EPILEPTICUS 126455167 SNOMED CT active 14 LOCALIZED OSTEOPOROSIS [LEQUESNE] 339754016 SNOMED CT active 15 LOW BACK PAIN 150550590 SNOMED CT active 16 MUSCLE WEAKNESS (GENERALIZED) 79671017 SNOMED CT active 17 OCCLUSION AND STENOSIS OF UNSPECIFIED CAROTID ARTERY 69547168 SNOMED CT active 18 OTHER HYPERLIPIDEMIA 42233624 SNOMED CT active 19 OTHER IRON DEFICIENCY ANEMIAS 52012833 SNOMED CT active 20 OTHER LACK OF COORDINATION 532846432 SNOMED CT active 21 OTHER RHEUMATIC AORTIC VALVE DISEASES 91047382 SNOMED CT active 22 OVERACTIVE BLADDER 180159596 SNOMED CT active 23 PERSONAL HISTORY OF OTHER DISEASES OF THE DIGESTIVE SYSTEM 57673251 SNOMED CT active 24 PRIMARY OSTEOARTHRITIS, UNSPECIFIED HAND 710305969 SNOMED CT active 25 SOLITARY PULMONARY NODULE 520309072 SNOMED CT active 26 SPINAL STENOSIS, LUMBAR REGION WITHOUT NEUROGENIC CLAUDICATION 68463188 SNOMED CT active 27 SPONDYLOLISTHESIS, LUMBAR REGION 186008691214333 SNOMED CT active 28 UNSPECIFIED ASTHMA, UNCOMPLICATED [address] active 29 UNSPECIFIED INFLAMMATORY SPONDYLOPATHY, LUMBAR REGION [address] active 30 UNSTEADINESS ON FEET [address] active 31 VENOUS INSUFFICIENCY (CHRONIC) (PERIPHERAL) [address] active 32 ATHEROSCLEROTIC HEART DISEASE OF CIRCLE CORONARY ARTERY WITHOUT ANGINA PECTORIS [address] active 33 CELLULITIS OF LEFT LOWER LIMB 017 07/01/[address] completed 34 CONSTIPATION, UNSPECIFIED [address] active 35 DIFFICULTY IN WALKING, NOT ELSEWHERE CLASSIFIED 017 07/01/[address] completed 36 ENCOUNTER FOR SURGICAL AFTERCARE FOLLOWING SURGERY ON THE SKIN AND SUBCUTANEOUS TISSUE 017 07/01/[address] completed 37 ESSENTIAL (PRIMARY) HYPERTENSION [address] active 38 HEART FAILURE, UNSPECIFIED [address] active 39 HYPERLIPIDEMIA, UNSPECIFIED [address] active 40 MUSCLE WEAKNESS (GENERALIZED) 017 07/01/[address] completed 41 NON-PRESSURE CHRONIC ULCER OF UNSPECIFIED PART OF LEFT LOWER LEG WITH UNSPECIFIED SEVERITY 017 07/01/[address] completed 42 NON-PRESSURE CHRONIC ULCER OF UNSPECIFIED PART OF UNSPECIFIED LOWER LEG WITH UNSPECIFIED SEVERITY 017 07/01/[address] completed 43 OBSTRUCTIVE SLEEP APNEA (ADULT) (PEDIATRIC) [address] active 44 OTHER LACK OF COORDINATION 017 07/01/[address] completed 45 PAROXYSMAL ATRIAL FIBRILLATION [address] active 46 SPINAL STENOSIS, SITE UNSPECIFIED [address] active 47 TYPE 2 DIABETES MELLITUS WITH OTHER SKIN ULCER 017 07/01/[address] completed 48 TYPE 2 DIABETES MELLITUS WITHOUT COMPLICATIONS [address] active Reason for Referral No Reasons for Referral Entered Social History Social History Observation Description Start Date End Date Code Code System Current Smoking Status Tobacco smoking consumption unknown 899627269 SNOMED CT Sex Assigned At Female 1950 95515-5 [facility] Vital Signs Code Code System Vitals Name Values and Units Timing Information 12331-2 [facility] Pain Level Value=0.0 07/08/2020 2339-0 [facility] Blood Sugar Value=83.0 Units=mg/dL 07/08/2020 37152-3 [facility] Weight Jcpjr=275.8 Units=Lbs 11816-5 [facility] O2 % BldC Oximetry Value=94.0 Units= % 07/08/2020 8867-4 [facility] Heart rate Value=81.0 Units=/min 8462-4 [facility] Blood Pressure-Diastolic Value=65 Un its=mmHg 07/08/2020 8480-6 [facility] Blood Pressure-Systolic Lzdkk=736 Un its=mmHg 07/08/2020 9279-1 [facility] Respiratory Rate Value=20.0 Units=/m in 07/08/2020 8310-5 [facility] Body Temperature Value=97.8 Units=?? F 07/08/2020 8302-2 [facility] Height Value=60.0 Units=Inches 01/07/2017
--- OUTSIDE RECORDS SUMMARY | 2025-02-12 19:13 | XMS_ITS | Encounter Summary ---
Author Organization [facility] Address [address] [place] [address] Care Team Providers Care Clothing Supervisor Name Role Phone Contreras Camacho MD Primary Care Provider [phone] Encounter Details Date Type Department Care Team Description 02/03/2015 [facility] Medical Records [address] [place] [address] Osmin Peterson MD Social History Tobacco Use Types Packs/Day [...] on filedocumented in this encounter Care Teams Clothing Supervisor Relationship Specialty Start Date End Date Contreras Camacho MD [address] [place], [place] [phone] PCP - General 07/15/1991 documented as of this encounter
--- OUTSIDE RECORDS SUMMARY | 2025-02-12 19:13 | XMS_ITS | Encounter Summary ---
Author Organization [facility] Address [address] [place] [address] Care Team Providers Care Business Administration Program Chair Name Role Phone Contreras Camacho MD Primary Care Provider [phone] Encounter Details Date Type Department Care Team Description 01/24/2012 Hospital Medical Records [address] [place] [address] Annia Jain PA-C [address] [place] [address] Social History Tobacco Use Types Packs/Day Years [...] on filedocumented in this encounter Care Teams Business Administration Program Chair Relationship Specialty Start Date End Date Contreras Camacho MD [address] [place] [address] PCP - General 07/15/1991 documented as of this encounter
--- OUTSIDE RECORDS SUMMARY | 2025-02-12 19:13 | XMS_ITS | Encounter Summary ---
Author Organization [facility] Address [address] [facility] [address] [place] [address] Phone Care Team Providers Care Early Childhood Aide Classroom Name Role Phone Susana Landrum DO Primary Care Provider [phone] Reason for Visit * Reason Comments Med Refill Encounter Details Date Type Department Care Team (Late st Contact Info) Description 08/17/2023 Refill [facility] [address] [facility] [address] [place] [phone] Dave Angulo MD Social History Tobacco Use [...] on filedocumented in this encounter Care Teams Early Childhood Aide Classroom Relationship Specialty Start Date End Date Susana Landrum DO [address] [place] [phone] PCP - General Pediatrics 08/12/21 documented as of this encounter
--- OUTSIDE RECORDS SUMMARY | 2025-02-12 19:13 | XMS_ITS | Encounter Summary ---
Author Organization [facility] Address [address] [place] [address] Care Team Providers Care Activities Aide Name Role Phone Contreras Camacho MD Primary Care Provider [phone] Encounter Details Date Type Department Care Team Description 09/29/2010 [facility] Medical Records [address] [place] [address] Shanell Keller MD Social History Tobacco Use Types Packs/Day [...] on filedocumented in this encounter Care Teams Activities Aide Relationship Specialty Start Date End Date Contreras Camacho MD [address] [place], [place] [phone] PCP - General 07/15/1991 documented as of this encounter
--- OUTSIDE RECORDS SUMMARY | 2025-02-12 19:13 | XMS_ITS | Encounter Summary ---
Author Organization [facility] Address [address] [place] [address] Care Team Providers Care Pump House Technician Name Role Phone Contreras Camacho MD Primary Care Provider [phone] Encounter Details Date Type Department Care Team Description 01/04/2012 Power Engineer Report Medical Records [address] [place] [address] Dave Angulo MD Social History Tobacco Use [...] on filedocumented in this encounter Care Teams Pump House Technician Relationship Specialty Start Date End Date Contreras Camacho MD [address] [place], [place] [phone] PCP - General 07/15/1991 documented as of this encounter
--- OUTSIDE RECORDS SUMMARY | 2025-02-12 19:13 | XMS_ITS | Clinical Summary ---
Author Organization [facility] Address [address] [place] [address] Care Team Providers Care Structural Steel Worker Name Role Phone Contreras Camacho MD Primary Care Provider [phone] Surgical History Surgery Date Site/Laterality Comments OTHER SURGICAL HISTORY 11/14 & 01/13 PROCEDURE: IMAGING, CARDIAC CATHETERIZATION; COMMENT: NEGATIVE NASAL SEPTUM SURGERY PROCEDURE: MN SEPTOPLASTY/SUBMUCOUS RESECJ W/WO CARTILAGE GRF; COMMENT: PER PT HISTORY OTHER SURGICAL HISTORY 07/24/01 PROCEDURE: NUCLEAR SCAN OF HEART MUSCLE; COMMENT: NORMAL EXAM OTHER SURGICAL HISTORY 04/12/03 PROCEDURE: DXA, BONE DENSITY STUDY, 1+ SITES; VERTEBRAL FX ASSESS; COMMENT: NORMAL OTHER SURGICAL HISTORY 05/22 PROCEDURE: MAMMOGRAM CHOLECYSTECTOMY PROCEDURE: HISTORICAL CHOLECYSTECTOMY; COMMENT: open COLONOSCOPY 06/12/2008 PROCEDURE: MN COLONOSCOPY FLX DX W/COLLJ SPEC WHEN PFRMD; COMMENT: diverticulosis, repeat 10 years APPENDECTOMY PROCEDURE: MN APPENDECTOMY; COMMENT: done concurrent with cholecystectomy ESOPHAGOGASTRODUODENOSCOPY 02/01/02 PROCEDURE: MN ESOPHAGOGASTRODUODENOSCOPY TRANSORAL DIAGNOSTIC; COMMENT: WNL ESOPHAGOGASTRODUODENOSCOPY 12/19/09 PROCEDURE: MN EGD TRANSORAL BIOPSY SINGLE/MULTIPLE; COMMENT: gastric foveolar hyperplasia COLONOSCOPY 05/2008 PROCEDURE: HISTORICAL COLONOSCOPY; COMMENT: tics; repeat in ten yrs COLONOSCOPY W/ BIOPSIES 06/24/14 PROCEDURE: MN COLONOSCOPY STOMA W/BIOPSY SINGLE/MULTIPLE; COMMENT: tics; repeat [...] Coronary atherosclerosis of unspecified type of vessel, [place] or graft 03/02/00 DX:Coronary atherosclerosis of unspecified type of vessel, [place] or graft Bronchitis, not specified as acute or chronic 07/11/2006 DX:Bronchitis, not specified as acute or chronic Depressive disorder, not els ewhere classified 03/14/02 DX:Depressive disorder, not elsewhere classified Sciatica 03/02/00 DX:Sciatica Lumbago 06/27/02 DX:Lumbago Atrial fibrillation ([facility]) 03/13/2008 DX :Atrial fibrillation ([facility]); COMMENT: Episode 02/19 Diverticulosis of colon [...] DX:Psoriasis Chronic renal insufficiency, stage III (moderate) ([facility]) 01/31/2012 DX:Chronic renal insufficien cy, stage III (moderate) ([facility]) Osteoarthrosis, unspecified whether generalized or localized, unspecified site 12/24/2010 DX:Osteoarthrosis, unspecifi ed whether generalized or localized, unspecified site Convulsion ([facility]) 07/11/2015 DX:Convulsi on ([facility]) Type II diabetes mellitus wi th [...] 07/15/2006 DX:Hype rtonicity of bladder Other emphysema ([facility]) 06/20/2007 DX:Oth er emphysema ([facility]) Insomnia 12/10/2013 DX:Insomnia IBS (irritable bowel syndrome) 07/23/2014 D X:IBS (irritable bowel syndrome) Hyperlipemia 08/12/2004 DX:Hyperlipemia Guttate psoriasis 07/28/2011 DX:Guttate pso riasis; COMMENT: Guttate psoriasis 07/28 right forearm Diverticulitis of colon with out hemorrhage 06/12/2008 DX:Diverticulitis of colon w ithout hemorrhage; COMMENT: Incidental finding at colonoscopy 06/12/2008. Depression 12/24/2011 DX:Depression Coronary atherosclerosis of [place] coronary vessel 03/02/2000 DX:Coronary atherosclerosis of [place] coronary vessel Carpal tunnel syndrome on left 08/24/2010 D X:Carpal tunnel syndrome on left CHF (congestive heart failur e) ([facility]) 12/07/2010 DX:CHF (congestive heart den lure) ([facility]) Unspecified asthma(493.90) 12/02/1998 DX:Un specified asthma(493.90) [...] at Not on file Legal Sex Female 2:21 PM EST Gender Identity Not on file Sexual Orientation Not on file Obstetrics History Plan of Treatment Health Maintenance Due Date Last Done Comments Diabetes: Annual GFR (Glomerular Filtration Rate) 1949 Diabetes: Annual Foot Exam 1959 Diabetes: Annual Retina Eye Exam 1959 Zoster Vaccines (1 of 2) 1999 Pneumococcal Vaccine: 50+ Years (2 of 2 - PCV) 12/07/2011 12/07/2010, 09/27/2001 DTaP,Tdap,and Td Vaccines (2 - Td or Tdap) 12/18/2014 12/18/2004 Cholesterol Screening (Lipid Panel) 12/13/2023 Depression Screening 12/13/2023 Diabetes: Annual Urine Albumin-Creatinine Ratio (uACR) 12/13/2023 Diabetes: Blood Sugar Control Test (HGBA1C) 12/13/2023 Falls Risk Assessment 12/13/2023 Hepatitis C Screening 12/13/2023 Hypertension/CHF/CAD Annual BMP Blood Test 12/13/2023 Osteoporosis Screening (Bone Density Screening) 12/13/2023 Social Influencers of Health Screening 12/13/2023 RSV Immunization Patients 60+ Years Old (1 - 1-dose 75+ series) 02/10/2024 COVID-19 Vaccine ( season) 2024 Influenza Vaccine (#1) 2024 4, [...] patient's age to complete this topic Meningococcal B Vacine Aged Out No lo nger eligible based on patient's age to complete this topic RSV Immunization Patients Under 20 months Aged Out No longer eligible based on patient's age to complete this topic Varicella Vaccines Aged Out No longer eligible based on patient's age to complete this topic Care Teams Structural Steel Worker Relationship Specialty Start Date End Date Skalski, Contreras S, MD PCP - General 07/15/1991
--- OUTSIDE RECORDS SUMMARY | 2025-02-12 19:13 | XMS_ITS | Encounter Summary ---
Author Organization [facility] Address [address] [place] [address] Care Team Providers Care Dog Hair Clipper Name Role Phone Contreras Camacho MD Primary Care Provider [phone] Encounter Details Date Type Department Care Team Description 07/22/2011 Business Doc Medical Records [address] [place] [address] Abstract, Provider Social History Tobacco Use Types [...] on filedocumented in this encounter Care Teams Dog Hair Clipper Relationship Specialty Start Date End Date Contreras Camacho MD [address] [place], [place] [id number] PCP - General 07/15/1991 documented as of this encounter
--- OUTSIDE RECORDS SUMMARY | 2025-02-12 19:13 | XMS_ITS | Encounter Summary ---
Author Organization [facility] Address [address] [place] [address] Care Team Providers Care Stage Driver Name Role Phone Contreras Camacho MD Primary Care Provider [phone] Encounter Details Date Type Department Care Team Description 01/16/2016 Hat Checker Report Medical Records [address] [place] [address] Lowell Michael MD Social History Tobacco Use Types Packs/Day [...] on filedocumented in this encounter Care Teams Stage Driver Relationship Specialty Start Date End Date Contreras Camacho MD [address] [place], [place] [phone] PCP - General 07/15/1991 documented as of this encounter
--- OUTSIDE RECORDS SUMMARY | 2025-02-12 19:13 | XMS_ITS | Encounter Summary ---
Author Organization [facility] Address [address] [place] [address] Care Team Providers Care Pail Tester Name Role Phone Contreras Camacho MD Primary Care Provider [phone] Encounter Details Date Type Department Care Team Description 05/28/2015 Release of Information Medical Records [address] [place] [address] Abstract, Provider Social History Tobacco Use Types [...] on filedocumented in this encounter Care Teams Pail Tester Relationship Specialty Start Date End Date Contreras Camacho MD [address] [place] [address] [id number] PCP - General 07/15/1991 documented as of this encounter
--- OUTSIDE RECORDS SUMMARY | 2025-02-12 19:13 | XMS_ITS | Encounter Summary ---
Author Organization [facility] Address [address] [place] [address] Care Team Providers Care Roll Plugger Name Role Phone Contreras Camacho MD Primary Care Provider [phone] Encounter Details Date Type Department Care Team Description 11/01/2012 Account Resolution Expert Report Medical Records [address] [place] [address] Dave Angulo MD Social History Tobacco Use [...] on filedocumented in this encounter Care Teams Roll Plugger Relationship Specialty Start Date End Date Contreras Camacho MD [address] [place], [place] [phone] PCP - General 07/15/1991 documented as of this encounter
--- OUTSIDE RECORDS SUMMARY | 2025-02-12 19:13 | XMS_ITS | Encounter Summary ---
Author Organization [facility] Address [address] [place] [address] Care Team Providers Care Library Customer Service Clerk Name Role Phone Contreras Camacho MD Primary Care Provider [phone] Encounter Details Date Type Department Care Team Description 09/18/2012 Release of Information Medical Records [address] [place] [address] Abstract, Provider Social History Tobacco Use Types [...] on filedocumented in this encounter Care Teams Library Customer Service Clerk Relationship Specialty Start Date End Date Contreras Camacho MD [address] [place] [address] [phone] PCP - General 07/15/1991 documented as of this encounter
--- OUTSIDE RECORDS SUMMARY | 2025-02-12 19:13 | XMS_ITS | Encounter Summary ---
Author Organization [facility] Address [address] [place] [address] Care Team Providers Care Topography Technician Name Role Phone Contreras Camacho MD Primary Care Provider [phone] Encounter Details Date Type Department Care Team Description 01/07/2016 Cardiology Rn Report Medical Records [address] [place] [address] Abstract, Provider Social History Tobacco Use Types [...] on filedocumented in this encounter Care Teams Topography Technician Relationship Specialty Start Date End Date Contreras Camacho MD [address] [place] [address] [id number] PCP - General 07/15/1991 documented as of this encounter
--- OUTSIDE RECORDS SUMMARY | 2025-02-12 19:13 | XMS_ITS | Encounter Summary ---
Author Organization [facility] Address [address] [place] [address] Care Team Providers Care System Developer Associate Manager Name Role Phone Contreras Camacho MD Primary Care Provider [phone] Encounter Details Date Type Department Care Team Description 08/04/2012 Business Doc Medical Records [address] [place] [address] Abstract, Provider Social History Tobacco Use Types [...] on filedocumented in this encounter Care Teams System Developer Associate Manager Relationship Specialty Start Date End Date Contreras Camacho MD [address] [place] [address] [id number] PCP - General 07/15/1991 documented as of this encounter
--- OUTSIDE RECORDS SUMMARY | 2025-02-12 19:13 | XMS_ITS | Encounter Summary ---
Author Organization [facility] Address [address] [place] [address] Care Team Providers Care Entry Driver Operator Name Role Phone Contreras Camacho MD Primary Care Provider [phone] Encounter Details Date Type Department Care Team Description 1950 Walk In Clinic Visit Medical Records [address] [place] [address] Contreras Andrews MD Social History Tobacco Use Types Packs/Day Years Used Date Smoking Tobacco: Never Assessed Sex Assigned at Date Recorded Not on file documented as of this encounter Plan of Treatment Not on file documented as of this encounter Visit Diagnoses Not on filedocumented in this encounter Care Teams Entry Driver Operator Relationship Specialty Start Date End Date Contreras Camacho MD [address] [place], [place] [phone] PCP - General 07/15/1991 documented as of this encounter
--- OUTSIDE RECORDS SUMMARY | 2025-02-12 19:13 | XMS_ITS | Encounter Summary ---
Author Organization [facility] Address [address] [place] [address] Care Team Providers Care Refuse Collector Supervisor Name Role Phone Contreras Camacho MD Primary Care Provider [phone] Encounter Details Date Type Department Care Team Description 11/14/2013 Night Triage Doc Medical Records [address] [place] [address] Abstract, Provider Social History Tobacco Use Types [...] on filedocumented in this encounter Care Teams Refuse Collector Supervisor Relationship Specialty Start Date End Date Contreras Camacho MD [address] [place] [address] [phone] PCP - General 07/15/1991 documented as of this encounter
--- OUTSIDE RECORDS SUMMARY | 2025-02-12 19:13 | XMS_ITS | Clinical Summary ---
Author Organization [facility] Address [address] [facility] [address] [place] [address] Phone Care Team Providers Care Anchorer Name Role Phone Susana Landrum DO Primary Care Provider [phone] Allergies Active Allergy Reactions Criticality Noted Date [...] 06/24/2020 02/10/2021 Atherosclerotic heart diseas e of [place] coronary artery without angina pectoris 01/06/2017 02/10/2021 [...] patient's age to complete this topic Insurance [facility] ([id number]) [facility] ([id number]) Care Teams Anchorer Relationship Specialty Start Date End Date Susana Landrum DO [address] [place] [phone] PCP - General Pediatrics 08/12/21
--- OUTSIDE RECORDS SUMMARY | 2025-02-12 19:13 | XMS_ITS | Encounter Summary ---
Author Organization [facility] Address [address] [place] [address] Care Team Providers Care Insurance Agency Sales Manager Name Role Phone Contreras Camacho MD Primary Care Provider [phone] Encounter Details Date Type Department Care Team Description 05/30/2012 Business Doc Medical Records [address] [place] [address] Abstract, Provider Social History Tobacco Use Types [...] on filedocumented in this encounter Care Teams Insurance Agency Sales Manager Relationship Specialty Start Date End Date Contreras Camacho MD [address] [place], [place] [phone] PCP - General 07/15/1991 documented as of this encounter
--- OUTSIDE RECORDS SUMMARY | 2025-02-12 19:13 | XMS_ITS | Encounter Summary ---
Author Organization [facility] Address [address] [place] [address] Care Team Providers Care Marriage And Family Social Worker Name Role Phone Contreras Camacho MD Primary Care Provider [phone] Encounter Details Date Type Department Care Team Description 05/04/2011 Beef Cattle Grazier Report Medical Records [address] [place] [address] Dave Angulo MD Social History Tobacco Use [...] on filedocumented in this encounter Care Teams Marriage And Family Social Worker Relationship Specialty Start Date End Date Contreras Camacho MD [address] [place], [place] [phone] PCP - General 07/15/1991 documented as of this encounter
--- OUTSIDE RECORDS SUMMARY | 2025-02-12 19:13 | XMS_ITS | Encounter Summary ---
Author Organization [facility] Address [address] [place] [address] Phone Care Team Providers Care Material Chaser Name Role Phone Susana Landrum DO Primary Care Provider [phone] Reason for Visit * Reason Comments Med Refill Encounter Details Date Type Department Care Team (Late st Contact Info) Description 04/13/2022 Refill [facility] [address] [place] [address] Rajat Patiño MD Social History Tobacco Use [...] filedocumented in this encounter Care Teams Material Chaser Relationship Specialty Start Date End Date Susana Landrum DO [address] [place] [phone] PCP - General Pediatrics 08/12/21 documented as of this encounter
--- OUTSIDE RECORDS SUMMARY | 2025-02-12 19:13 | XMS_ITS | Encounter Summary ---
Author Organization [facility] Address [address] [place] [address] Care Team Providers Care Fire Investigation Manager Name Role Phone Contreras Camacho MD Primary Care Provider [phone] Encounter Details Date Type Department Care Team Description 01/06/2015 Pricing Actuary Report Medical Records [address] [place] [address] Osmin Peterson MD Social History Tobacco Use [...] on filedocumented in this encounter Care Teams Fire Investigation Manager Relationship Specialty Start Date End Date Contreras Camacho MD [address] [place], [place] [phone] PCP - General 07/15/1991 documented as of this encounter
--- OUTSIDE RECORDS SUMMARY | 2025-02-12 19:13 | XMS_ITS | Encounter Summary ---
Author Organization [facility] Address [address] [place] [address] Care Team Providers Care Mouse Breeder Name Role Phone Contreras Camacho MD Primary Care Provider [phone] Encounter Details Date Type Department Care Team Description 01/17/2012 Central Office Installer Report Medical Records [address] [place] [address] Cary Arteaga Social History Tobacco Use Types [...] on filedocumented in this encounter Care Teams Mouse Breeder Relationship Specialty Start Date End Date Contreras Camacho MD [address] [place], [place] [phone] PCP - General 07/15/1991 documented as of this encounter
--- OUTSIDE RECORDS SUMMARY | 2025-02-12 19:13 | XMS_ITS | Encounter Summary ---
Author Organization [facility] Address [address] [place] [address] Care Team Providers Care Softball Player Name Role Phone Contreras Camacho MD Primary Care Provider [phone] Reason for Visit * Reason Onset Date Comments Prior Authorization 10/02/2014 Encounter Details Date Type Department Care Team Description 10/02/2014 Telephone Gastroenterology - [address] [address] Natalie Leo MD Prior Authorization Social History Tobacco Use Types Packs/Day Years Used Date Smoking Tobacco: Never Smokeless Tobacco: Never Alcohol Use Standard Drinks/Week Comments No 0 (1 standard drink = 0.6 oz pur e alcohol) Sex Assigned at Date Recorded Not on file documented as of this encounter Miscellaneous Notes * Telephone Encounter - Ana Henderson - 10/02/2014 2:09 PM EST Hyoscyamine is not covered; needs prior auth documented in this encounter Plan of Treatment Not on file documented as of this encounter Visit Diagnoses Not on filedocumented in this encounter Care Teams Softball Player Relationship Specialty Start Date End Date Contreras Camcaho MD [address] [place] [address] PCP - General 07/15/1991 documented as of this encounter
--- OUTSIDE RECORDS SUMMARY | 2025-02-12 19:13 | XMS_ITS | Encounter Summary ---
Author Organization [facility] Address [address] [place] [address] Care Team Providers Care Golf Course Mechanic Name Role Phone Contreras Camacho MD Primary Care Provider [phone] Encounter Details Date Type Department Care Team Description 01/22/2012 Hospital Medical Records [address] [place] [address] Beatriz Blanchard [address] [address] Social History Tobacco Use Types Packs/Day Years [...] on filedocumented in this encounter Care Teams Golf Course Mechanic Relationship Specialty Start Date End Date Contreras Camacho MD [address] [place] [address] PCP - General 07/15/1991 documented as of this encounter
--- OUTSIDE RECORDS SUMMARY | 2025-02-12 19:13 | XMS_ITS | Encounter Summary ---
Author Organization [facility] Address [address] [place] [address] Care Team Providers Care Grid Inspector Name Role Phone Contreras Camacho MD Primary Care Provider Encounter Details Date Type Department Care Team Description 09/30/2010 [facility] Medical Records [address] [place] [address] Melody Marroquin Social History Tobacco Use Types Packs/Day Years [...] on filedocumented in this encounter Care Teams Grid Inspector Relationship Specialty Start Date End Date Contreras Camacho MD [address] [place], [place] [phone] PCP - General 07/15/1991 documented as of this encounter
--- OUTSIDE RECORDS SUMMARY | 2025-02-12 19:13 | XMS_ITS | Encounter Summary ---
Author Organization [facility] Address [address] [place] [address] Care Team Providers Care Gas Main Fitter Name Role Phone Contreras Camacho MD Primary Care Provider [phone] Encounter Details Date Type Department Care Team Description 09/04/2012 [facility] Medical Records [address] [place] [address] Maximo Marsh Social History Tobacco Use Types Packs/Day Years [...] on filedocumented in this encounter Care Teams Gas Main Fitter Relationship Specialty Start Date End Date Contreras Camacho MD [address] [place] [address] [phone] PCP - General 07/15/1991 documented as of this encounter
--- OUTSIDE RECORDS SUMMARY | 2025-02-12 19:13 | XMS_ITS | Encounter Summary ---
Author Organization [facility] Address [address] [place] [address] Care Team Providers Care Health Safety And Environment Manager Name Role Phone Contreras Camacho MD Primary Care Provider [phone] Encounter Details Date Type Department Care Team Description 02/13/2015 Credit Risk Analytics Manager Report Medical Records [address] [place] [address] Hu Hope PA-C [address] [facility] [address] [place] [address] Social History Tobacco Use Types Packs/Day Years [...] on filedocumented in this encounter Care Teams Health Safety And Environment Manager Relationship Specialty Start Date End Date Contreras Camacho MD [address] [place] [address] PCP - General 07/15/1991 documented as of this encounter
--- OUTSIDE RECORDS SUMMARY | 2025-02-12 19:13 | XMS_ITS | Encounter Summary ---
Author Organization [facility] Address [address] [place] [address] Care Team Providers Care Head Refrigeration Engineer Name Role Phone Contreras Camacho MD Primary Care Provider [phone] Encounter Details Date Type Department Care Team Description 01/31/2010 [facility] Medical Records [address] [place] [address] Sarah Mar MD Social History Tobacco Use Types Packs/Day [...] on filedocumented in this encounter Care Teams Head Refrigeration Engineer Relationship Specialty Start Date End Date Contreras Camacho MD [address] [place], [place] [phone] PCP - General 07/15/1991 documented as of this encounter
--- OUTSIDE RECORDS SUMMARY | 2025-02-12 19:13 | XMS_ITS | Encounter Summary ---
Author Organization [facility] Address [address] [place] [address] Care Team Providers Care Facility Security Officer Name Role Phone Contreras Camacho MD Primary Care Provider [phone] Encounter Details Date Type Department Care Team Description 09/25/2015 Export Administrator Report Medical Records [address] [place] [address] Cary Arteaga Social History Tobacco Use Types [...] on filedocumented in this encounter Care Teams Facility Security Officer Relationship Specialty Start Date End Date Contreras Camacho MD [address] [place], [place] [phone] PCP - General 07/15/1991 documented as of this encounter
--- OUTSIDE RECORDS SUMMARY | 2025-02-12 19:13 | XMS_ITS | Encounter Summary ---
Author Organization [facility] Address [address] [place] [address] Care Team Providers Care Automobile Mechanic Supervisor Name Role Phone Contreras Camacho MD Primary Care Provider [phone] Reason for Visit * Reason Onset Date Comments REFERRAL 12/16/2011 Cynrtoenterologdaniela - Dr. Duke Encounter Details Date Type Department Care Team Description 12/16/2011 Telephone Adult Medicine - [address] [address] Contreras Camacho MD [address] [place] [id number] REFERRAL (Teenaoedarrius- Dr. Duke) Social History Tobacco Use Types Packs/Day Years Used Date Smoking Tobacco: Never Smokeless Tobacco: Never Alcohol Use Standard Drinks/Week Comments No 0 (1 standard drink = 0.6 oz pur e alcohol) Sex Assigned at Date Recorded Not on file documented as of this encounter Miscellaneous Notes * Telephone Encounter - Sebastian Sales - 12/16/2011 1:36 PM EST Please verify with the patient now that this is the current/active insurance: Pay[place] Plan[place] Product Type: MEDICARE [id number] Effective 08/14/09: BCBS will not retro referral requests over 90 days. If request is for this please instruct patient to call the 800# on their insurance card to appeal. Do not submit a request. Referrals cannot be processed if the insurance is not accurate. If the insurance listed above in red is NO BILLING INFORMATION FOUND FOR THIS ENCOUTNER The patients correct insurance must be obtained and registered in [facility] or their referral can not be processed. Who is calling to request this referral? Pt If the caller is not the patient, what is their name? N/A FIRST and LAST NAME of SPECIALIST PATIENT is seeing: Dr. Galindo Duke What specialty is this? Gastroenterology DIAGNOSIS Patient is being seen for (Not a body part or a procedure): No dx per ER - pt having painL side below ribs. Has appt with PCP on Have you seen this SPECIALIST for this PROBLEM/DX before?YES If YES, when: 14 months ago Have you checked REVIEW or the APPT DESK to see if this referral has already been done or has visits left? YES Who referred the patient to this specialty? Needs PCP to do it Is this visit:Initial Visit Address of Specialist:[address] [place] [address] Phone # of Specialist: [phone] Fax #: (if applicable):N/A Does patient have an appointment scheduled?: NO Date of appointment- (including a retro-request): N/A Is this appointment related to: Not MVA, WC or Surgery related documented in this encounter Plan of Treatment Not on file documented as of this encounter Visit Diagnoses Not on filedocumented in this encounter Care Teams Automobile Mechanic Supervisor Relationship Specialty Start Date End Date Contreras Camacho MD [address] [place] [id number] PCP - General 07/15/1991 documented as of this encounter
--- OUTSIDE RECORDS SUMMARY | 2025-02-12 19:13 | XMS_ITS | Encounter Summary ---
Author Organization [facility] Address [address] [place] [address] Care Team Providers Care Machine Plate Stacker Name Role Phone Contreras Camacho MD Primary Care Provider [phone] Encounter Details Date Type Department Care Team Description 05/28/2015 Technical Solutions Consultant Report Medical Records [address] [place] [address] Abstract, Provider Social History Tobacco Use Types [...] on filedocumented in this encounter Care Teams Machine Plate Stacker Relationship Specialty Start Date End Date Contreras Camacho MD [address] [place], [place] [phone] PCP - General 07/15/1991 documented as of this encounter
--- OUTSIDE RECORDS SUMMARY | 2025-02-12 19:13 | XMS_ITS | Encounter Summary ---
Author Organization [facility] Address [address] [place] [address] Care Team Providers Care Cocoa Bean Roaster Helper Name Role Phone Contreras Camacho MD Primary Care Provider [phone] Reason for Visit * Reason Onset Date Comments Provider Call Back 03/06/2015 Encounter Details Date Type Department Care Team Description 03/06/2015 Telephone Adult Medicine - [place] [address] [place] [address] Contreras Camacho MD [address] [place] [address] Provider Call Back Social History Tobacco Use Types Packs/Day Years Used Date Smoking Tobacco: Never Smokeless Tobacco: Never Alcohol Use Standard Drinks/Week Comments No 0 (1 standard drink = 0.6 oz pur e alcohol) Sex Assigned at Date Recorded Not on file documented as of this encounter Miscellaneous Notes * Telephone Encounter - Alisia Chopra M.A - 03/07/2015 10:00 AM EDT Please read elizabeth message they need more specific instructions on the sliding scale for humalog kwinpen * Telephone Encounter - Contreras Camacho MD - 03/07/2015 8:37 AM EDT pls inquire Karens concern * Telephone Encounter - Elizabeth Romero L.P.N. - 03/06/2015 4:38 PM EDT Ok for Tuesday. Nurse is asking for more specific directions on the sliding scale for her Ashok Lutz. * Telephone Encounter - So Bibi - 03/06/2015 3:50 PM EDT Lorene returning your call. Please call her. * Telephone Encounter - Elizabeth Romero L.P.N. - 03/06/2015 3:39 PM EDT Message left to call back triage nurse. * Telephone Encounter - Estefania Dawn - 03/06/2015 3:06 PM EDT Caller requesting call back from provider: Is the caller the patient? NO If caller is not the patient, what is the callers name? Lorene Callers relationship to patient? CC If person calling is not the patient themselves, is there a verbal release in FYI or permanent comments for this person: NO Reason for call back: Lorene from CC calling to clarify information about pt sliding scale. Caller offered to speak with the nurse for assistance: YES Response: Patient offered to speak with nurse for assistance and patient agreed. Message forwarded to nurse. documented in this encounter Plan of Treatment Not on file documented as of this encounter Visit Diagnoses Not on filedocumented in this encounter Care Teams Cocoa Bean Roaster Helper Relationship Specialty Start Date End Date Contreras Camacho MD [address] [place] [id number] PCP - General 07/15/1991 documented as of this encounter
--- OUTSIDE RECORDS SUMMARY | 2025-02-12 19:13 | XMS_ITS | Encounter Summary ---
Author Organization [facility] Address [address] [place] [address] Care Team Providers Care Maintenance Team Leader Name Role Phone Contreras Camacho MD Primary Care Provider [phone] Encounter Details Date Type Department Care Team Description 12/06/2011 Eye Rope Laying Machine Operator Report Medical Records [address] [place] [address] Dinora Vega OD Social History Tobacco Use Types Packs/Day Years [...] on filedocumented in this encounter Care Teams Maintenance Team Leader Relationship Specialty Start Date End Date Contreras Camacho MD [address] [place] [address] [phone] PCP - General 07/15/1991 documented as of this encounter
--- OUTSIDE RECORDS SUMMARY | 2025-02-12 19:13 | XMS_ITS | Encounter Summary ---
Author Organization [facility] Address [address] [place] [address] Phone Care Team Providers Care Accounting Machine Mechanic Name Role Phone Susana Landrum DO Primary Care Provider [phone] Reason for Visit * Reason Comments Med Refill Encounter Details Date Type Department Care Team (Late st Contact Info) Description 08/17/2022 Refill [facility] [address] [place] [address] Rajat Patiño MD Social History Tobacco Use [...] on filedocumented in this encounter Care Teams Accounting Machine Mechanic Relationship Specialty Start Date End Date Susana Landrum DO [address] [place] [phone] PCP - General Pediatrics 08/12/21 documented as of this encounter
--- OUTSIDE RECORDS SUMMARY | 2025-02-12 19:13 | XMS_ITS | Encounter Summary ---
Author Organization [facility] Address [address] [place] [address] Care Team Providers Care Flask Pusher Name Role Phone Cnotreras Camacho MD Primary Care Provider [phone] Encounter Details Date Type Department Care Team Description 02/02/2011 Clamp Truck Driver Report Medical Records [address] [place] [address] Dave Angulo MD Social History Tobacco Use [...] on filedocumented in this encounter Care Teams Flask Pusher Relationship Specialty Start Date End Date Contreras Camacho MD [address] [place] [address] [id number] PCP - General 07/15/1991 documented as of this encounter
--- OUTSIDE RECORDS SUMMARY | 2025-02-12 19:13 | XMS_ITS | Encounter Summary ---
Author Organization [facility] Address [address] [place] [address] Care Team Providers Care Motor Lodge Clerk Name Role Phone Contreras Camacho MD Primary Care Provider [phone] Encounter Details Date Type Department Care Team Description 11/22/2013 Business Doc Medical Records [address] [place] [address] Abstract, Provider Social History Tobacco Use Types [...] filedocumented in this encounter Care Teams Motor Lodge Clerk Relationship Specialty Start Date End Date Contreras Camacho MD [address] [place], [place] [phone] PCP - General 07/15/1991 documented as of this encounter
--- OUTSIDE RECORDS SUMMARY | 2025-02-12 19:13 | XMS_ITS | Encounter Summary ---
Author Organization [facility] Address [address] [place] [address] Care Team Providers Care Cargo Service Agent Name Role Phone Contreras Camacho MD Primary Care Provider [phone] Encounter Details Date Type Department Care Team Description 02/11/2016 Walk In Clinic Visit Medical Records [address] [place] [address] Adryan Pedraza Social History Tobacco Use Types [...] on filedocumented in this encounter Care Teams Cargo Service Agent Relationship Specialty Start Date End Date Contreras Camacho MD [address] [place], [place] [phone] PCP - General 07/15/1991 documented as of this encounter
--- OUTSIDE RECORDS SUMMARY | 2025-02-12 19:13 | XMS_ITS | Encounter Summary ---
Author Organization [facility] Address [address] [place] [address] Care Team Providers Care Rolling Machine Tender Name Role Phone Contreras Camacho MD Primary Care Provider [phone] Encounter Details Date Type Department Care Team Description 11/22/2011 Cardiology Procedure Cardiology - [place] [address] [place] [address] Echo, Cardiology [address] [place] [address] [phone] Social History Tobacco Use Types Packs/Day Years Used Date Smoking Tobacco: Never Smokeless Tobacco: Never Alcohol Use Standard Drinks/Week Comments No 0 (1 standard drink = 0.6 oz pur e alcohol) Sex Assigned at Date Recorded Not on file documented as of this encounter Procedure Notes * Kirill Noe MD - 11/22/2011 1:18 PM EST Patient Name: [facility] Cardiology Department Date of Service: HOLTER A 61-year-old female. DATE OF : 1950. HOOKUP DATE: 11/11/2011. TOTAL DURATION: 24 hours. Requesting provider is Wanda Parrish N.P. Reason for test is atrial fibrillation. INTERPRETATION: Baseline rhythm is normal sinus rhythm on average. There is a lot of artifactual data noticed. Patient otherwise has average heart rate of 58 beats per minute on bradycardic side. Minimum heart rate is 38 beats per minute, marked sinus bradycardia during sleeping hours. Maximum heart rate 103 beats per minute, sinus tachycardia. There were a total of 33,096 beats in bradycardia, ac counting for 56% of total beats, accounting for frequent sinus bradycardia. There are no pauses greater than 2 seconds noticed. There were a total of 419 ventricular ectopics, accounting for occasional ventricular ectopics, all of which were isolated. There are no episodes of atrial fibrillation. There are no episodes of supraventricular arrhythmias. Patient did not report any events. CONCLUSION: Holter report is remarkable for: 1. Poor quality data. 2. Baseline normal sinus rhythm with frequent sinus bradycardia with no pauses. 3. Occasional ventricular ectopics. 4. No patient reported events. Kirill Noe M.D. cc: Wanda Parrish N.P. / documented in this encounter Plan of Treatment Not on file documented as of this encounter Visit Diagnoses Not on filedocumented in this encounter Care Teams Rolling Machine Tender Relationship Specialty Start Date End Date Contreras Camacho MD [address] [place] [address] PCP - General 07/15/1991 documented as of this encounter
== END 2025-02-12 18:43 | disposition home or self-care (01) ==
LOC: HO.ED 18:24
PROVIDERS: Emergency Provider Emergency Medicine; PCP Pediatrics
DX: S00.93XA Contusion of unspecified part of head, initial encounter (principal); W01.0XXA Fall on same level from slipping, tripping and stumbling without subsequent striking against object, initial encounter; I48.91 Unspecified atrial fibrillation; Z79.01 Long term (current) use of anticoagulants; Y93.01 Activity, walking, marching and hiking; Y92.481 Parking lot as the place of occurrence of the external cause; Y99.9 Unspecified external cause status
CPT/HCPCS: 70450; 72125; 99283; 99284

== ENCOUNTER → 2025-02-12 15:46 | Outpatient (BNV) | payer MEDICARE, SELFPAY | PROVIDERS: PCP Pediatrics; Visit Provider Radiology Diagnostic Radiology | DX: R91.8 Other nonspecific abnormal finding of lung field (principal); S09.90XA Unspecified injury of head, initial encounter | CPT/HCPCS: 70450; 72125 ==

== ENCOUNTER 2025-04-24 10:20 | Outpatient (AMB) | payer MEDICARE, SELFPAY ==
--- NOTE | 2025-04-24 10:24 | HO.NEPHOV ---
Vital Signs 04/24/25 10:25 04/24/25 10:37 Height 5 ft Weight 150 lb BMI 29.3 BP 152/62 H 136/60 Blood Pressure Location Lt brachial Lt brachial Position Sitting Sitting Pulse 69 Pulse Source Pulse Oximeter Pulse Oximetry (%) 96 Oxygen Delivery Method Room Air Intake Visit Reasons: 6 mnts f/u appt Conf Cigarette Seller Required: No Accompanied by: Self / Same As Patient Allergies codeine Allergy (Verified 04/24/25 10:27) Unknown furosemide Allergy (Verified 04/24/25 10:27) Unknown lisinopril Allergy (Verified 04/24/25 10:27) Cough oxycodone Allergy (Verified 04/24/25 10:27) Itching tetracycline Allergy (Verified 04/24/25 10:27) Nausea and Vomiting Erythromycin Allergy (Uncoded 02/12/25 15:49) Vomiting Hydrocodone-Acetaminophen Allergy (Uncoded 02/12/25 15:49) Itching Talwin Pentazocine Allergy (Uncoded 02/12/25 15:49) Itching Medication List - Last Reconciled 04/24/25 by Dave Angulo MD albuterol sulfate 90 mcg/actuation (Ventolin HFA) inhalation alendronate 70 mg PO QWEEK amiodarone 200 mg PO DAILY amlodipine 5 mg PO BID apixaban (Eliquis) 5 mg PO BID bupropion HCl SR 200 mg PO BID cetirizine (Zyrtec) 10 mg PO DAILY PRN cholecalciferol (vitamin D3) 50 mcg PO DAILY cyanocobalamin (vitamin B-12) (Vitamin B-12) mcg sublingual cyclosporine 0.05% drps ophthalmic (eye) duloxetine 60 mg PO DAILY uguxaschxfz-zputahujj-ugjldkru 200-62.5-25 mcg (Trelegy Ellipta) 1 inh inhalation DAILY PRN gabapentin 300 mg PO BID hydralazine 50 mg (2 x 25 mg) PO TID insulin aspart U-100 (Novolog FlexPen U-100 Insulin aspart) subcut insulin glargine (Lantus Solostar U-100 Insulin) 35 units subcut melatonin 3 mg PO BEDTIME PRN montelukast 10 mg PO DAILY omeprazole 40 mg PO BID rosuvastatin 20 mg PO BEDTIME spironolactone 50 mg PO BID NS trazodone 50 mg PO BEDTIME vitamin E (dl, acetate) mg PO DAILY HPI Comments Details: Margi is a 74-year-old woman with a history of resistant hypertension setting obesity and diabetes mellitus. She has a history of coronary disease and atrial fibrillation. She has been on spironolactone hydralazine and amlodipine. No new issues today Baseline creatinine is around 1.4 mg/dL.. 04/24/25 75-year-old female presenting with a routine follow-up for essential hypertension management and CKD;s/p a recent fall. She mentions that at home, her blood pressure readings have been stable, although there was a noted elevation when she initially came into the clinic, later resolving to 136 mmHg. Compliance with her current regimen, including Amlodipine, Hydralazine, and Spironolactone, is confirmed without any reported adverse effects. The patient describes an event where she fell due to an elevated curb while without her walker. The fall did not result in any injury, and there was no associated head trauma or loss of consciousness. Emphasis was placed on avoiding similar situations and ensuring the use of mobility aids as necessary. Recently lost her of 50 yrs. [facility] Medical History (Updated 02/13/25 @ 00:00 by Background Daemon) Venous insufficiency (chronic) (peripheral) Unsteadiness on feet Type 2 diabetes mellitus Stage 3 chronic kidney disease Spondylolisthesis of lumbar region Spinal stenosis Solitary pulmonary nodule Obstructive sleep apnea on CPAP Seizure Restlessness Restless leg syndrome Primary osteoarthritis Pneumonia Personal history of other diseases of digestive system Paroxysmal atrial fibrillation Pancreatitis Pain in both feet Overactive bladder Other rheumatic aortic valve diseases Other lack of coordination Other hyperlipidemia Other emphysema Onychomycosis Occlusion and stenosis of unspecified carotid artery Obstructive sleep apnea syndrome Malignant essential hypertension Low back pain Localized osteoporosis [[place]] Localization-related (focal) (partial) symptomatic epilepsy and epileptic syndromes with simple partial seizures, intractable, with status epilepticus Irritable bowel syndrome Insomnia Inflammatory spondylopathy of lumbar region Hypertensive retinopathy Hypersomnia with sleep apnea Guttate psoriasis Generalized muscle weakness Essential hypertension Esophageal reflux Encounter for other specified surgical aftercare Diverticulitis of colon Disorder of eye Difficulty walking Depressive disorder Functional constipation Congestive heart failure Carpal tunnel syndrome of left wrist Atrial fibrillation Atherosclerotic heart disease of [place] coronary artery without angina pectoris Asthma Anxiety Adjustment disorder with mixed anxiety and depressed mood Anemia Surgical History History of cholecystectomy Hx of cataract surgery Family History Family/Other Diabetes Social History Alcohol intake: never Patient Tobacco Use Status: Never used Tobacco Physical Exam Vital Signs: Last Vital Signs Pulse 69 04/24/25 10:25 BP 136/60 04/24/25 10:37 Pulse Ox 96 04/24/25 10:25 Oxygen Delivery Method Room Air 04/24/25 10:25 BMI result Body Mass Index 29.3 Const General: comfortable Nutritional Appearance: well nourished Orientation/consciousness: patient oriented x3 HEENT Head: No normal to inspection Mouth: moist mucous membranes Neck Neck: Yes supple and Yes no JVD Resp Auscultation: clear to auscultation bilaterally, no rales and rub present Cardio Jugular venous distension: no JVD Palpation: no palpable S3 and no palpable S4 Heart sounds: no rubs GI Palpation (GI): Soft to palpation and nontender Percussion: No Fluid wave present General: Yes no CVA tenderness Back/Spine/Pelvis Back: no CVA tenderness Skin General skin exam: no rashes or lesions noted Neuro General: patient oriented x3 Extrem General: Yes no pedal edema and No clubbing Results Reviewed Results Reviewed: 04/23/25 BUN 27 Cr 1.5 Nephrology Results: No Data to Display Assessment & Plan Assessment & Plan (1) CKD (chronic kidney disease): Code(s): N18.9 - Chronic kidney disease, unspecified Category: Medical (2) Malignant essential hypertension: Code(s): I10 - Essential (primary) hypertension Category: Medical Plan Elderly woman with mwyezvtok-jz-lamncqy hypertension in the setting of coronary disease and CKD. In the past she has been tried on various medications and blood pressure been difficult to control. She has had few admissions with severe hypertension as well as hypotension. Present blood pressure seems to be acceptable. Encouraged her to stay on low-sodium diet. I will keep her on the current regimen. While on spironolactone we will continue to monitor serum potassium periodically. Encouraged her to stay on a low potassium diet as well. She will benefit from weight loss. I have not made any changes to her medications today. Creatinine is close to baseline - around 1.3 to 1.5 Shall watch Avoid nephrotoxins/NSAIDS Orders: Orders Complete Blood Count no Diff 4 Months I10 - Essential (primary) hypertension, N18.9 - Chronic kidney disease, unspecified Basic Metabolic Panel 4 Months I10 - Essential (primary) hypertension, N18.9 - Chronic kidney disease, unspecified Coding Level of Care Code Est Pt Level 4 (32239) Diagnoses CKD (chronic kidney disease) N18.9 Malignant essential hypertension I10
[2025-04-24 10:25] VITALS: BP 152/62; PULSE 69; O2SAT 96; BMI 29.3
[2025-04-24 10:37] VITALS: BP 136/60
--- OUTSIDE RECORDS SUMMARY | 2025-04-24 11:42 | XMS_ITS | Encounter Summary ---
Author Organization [facility] Address [address] [place] [address] Care Team Providers Care Calibration Technician Name Role Phone Contreras Camacho MD Primary Care Provider [phone] Encounter Details Date Type Department Care Team Description 03/23/2016 Computer Processing Scheduler Report Medical Records [address] [place] [address] Contreras Camacho MD [address] [place] [address] Social History Tobacco Use Types Packs/Day Years [...] on filedocumented in this encounter Care Teams Calibration Technician Relationship Specialty Start Date End Date Contreras Camacho MD [address] [place] [address] PCP - General 07/15/1991 documented as of this encounter
== END 2025-04-24 10:40 | disposition home or self-care (01) ==
LOC: HO.HKAS 10:21
PROVIDERS: PCP Pediatrics; Visit Provider Internal Medicine Hypertension Specialist
DX: I12.9 Hypertensive chronic kidney disease with stage 1 through stage 4 chronic kidney disease, or unspecified chronic kidney disease (principal); N18.9 Chronic kidney disease, unspecified
CPT/HCPCS: 99214

== ENCOUNTER → 2025-04-24 10:20 | Outpatient (BNVA) | payer MEDICARE, SELFPAY | PROVIDERS: PCP Pediatrics; Visit Provider Internal Medicine Hypertension Specialist | DX: I10 Essential (primary) hypertension (principal); N18.9 Chronic kidney disease, unspecified | CPT/HCPCS: 99212 ==